=== PATIENT | male | born 1970 | race Two or more races ===

== ENCOUNTER 2016-06-07 20:24 | Emergency (ER) | payer OTHER ==
[~2016-06-07] VITALS: Ht 180.3 cm; Wt 81.6 kg
[2016-06-08 00:39] LABS: Albumin 1.7 g/dL (3.4-5.0); Calcium 7.5 mg/dL (8.5-10.1); Magnesium 2.7 mg/dL (1.6-2.6); Potassium 5.4 mmol/L (3.5-5.1)
[2016-06-08 00:42] LABS: Bilirubin, Total 0.2 mg/dL (0.2-1.0); Total Protein 6.2 g/dL (6.4-8.2)
[2016-06-08 00:44] LABS: Partial Thromboplastin Time 28.8 sec (22.64-33.71); Prothrombin Time 10.3 sec (9.37-12.3)
[2016-06-08 00:58] LABS: Basophils # (auto) 0 uL; Basophils % (auto) 0.2 % (0.0-2.0); Eosinophils # (auto) 0 uL; Eosinophils % (auto) 0.2 % (0.0-7.0); Hematocrit 34.5 % (41.0-53.0); Hemoglobin 11.3 g/dL (13.5-17.5); Lymphocytes # (auto) 0.5 uL; Lymphocytes % (auto) 4.1 % (10.0-50.0); Mean Corpuscular Hemoglobin 28.1 pg (28.0-32.0); Mean Corpuscular Hgb Conc. 32.7 g/dL (32.0-36.0); Mean Platelet Volume 9.8 fL (7.4-10.4); Monocytes # (auto) 0.5 uL; Monocytes % (auto) 4.3 % (0.0-12.0); Neutrophils # (auto) 10.3 uL; Neutrophils % (auto) 91.2 % (37.0-80.0); Platelet Count (auto) 278 10^3/uL (140-450); Red Cell Distribution Width 14.5 % (11.6-16.0); White Blood Cell 11.3 10^3/uL (4.4-10.8)
[2016-06-08 01:25] LABS: Temperature: 20.1 C (20.0-25.0)
[2016-06-08] MEDS ORDERED: cloNIDine HCL 0.1 MG TAB PO ONE (04:30)
[2016-06-08] MEDS ORDERED: FUROSEMIDE 20 MG/2 ML VIAL IV ONE (05:00)
[2016-06-08] MEDS ORDERED: SODIUM POLYSTYRENE SULF 15GM/60ML SUSP PO ONE (05:15)
[2016-06-08] MEDS ORDERED: LABETALOL HCL 5 MG/ML 4ML SYRINGE IV ONE (07:30)
[2016-06-08 08:50] VITALS: BP 173/95
== END 2016-06-08 09:02 | disposition short-term general hospital (02) ==
LOC: ER 20:25
DX: R07.9 Chest pain, unspecified (principal); E11.9 Type 2 diabetes mellitus without complications; N17.9 Acute kidney failure, unspecified; I11.0 Hypertensive heart disease with heart failure; I50.9 Heart failure, unspecified; E87.5 Hyperkalemia; R10.13 Epigastric pain
CPT/HCPCS: 36415; 71020; 80053; 82962; 83735; 83880; 84443; 84484; 85025; 85049; 85379; 85610; 85730; 93005; 94761; 96374; 96375; 99285; J1940; J3490

== ENCOUNTER 2018-01-04 23:53 | Inpatient (IN) | payer MEDICARE, MEDICAID ==
[~2018-01-04] VITALS: Ht 175.3 cm; Wt 93.3 kg
[2018-01-05] MEDS ORDERED: hydrALAZINE HCL 20 MG/ML VL IV ONE (00:15)
[2018-01-05] MEDS ORDERED: ONDANSETRON HCL 4 MG/2 ML VIAL IV ONE (00:15)
[2018-01-05] MEDS ORDERED: MORPHINE SULFATE 4 MG/ML SYR/VIAL IV ONE ×2 (00:15→06:00)
[2018-01-05 00:49] LABS: Basophils # (auto) 0.1 uL; Basophils % (auto) 0.7 % (0.0-2.0); Eosinophils # (auto) 0.7 uL; Monocytes # (auto) 1.1 uL; Neutrophils # (auto) 11.2 uL
[2018-01-05] MEDS ORDERED: NITROGLYCERIN 0.4 MG SL TAB SL ONE ×2 (00:51→02:30)
[2018-01-05 00:52] LABS: Eosinophils % (auto) 4.5 % (0.0-7.0); Hematocrit 23.8 % (41.0-53.0); Hemoglobin 7.9 g/dL (13.5-17.5); Lymphocytes # (auto) 1.8 uL; Lymphocytes % (auto) 12.1 % (10.0-50.0); Mean Corpuscular Hgb Conc. 33.2 g/dL (32.0-36.0); Mean Corpuscular Volume 93.4 fL (80.0-100.0); Monocytes % (auto) 7.2 % (0.0-12.0); Neutrophils % (auto) 75.5 % (37.0-80.0); Platelet Count (auto) 269 10^3/uL (140-450); Red Blood Cells 2.55 10^6/uL (4.5-5.90); Red Cell Distribution Width 14.7 % (11.8-14.3); White Blood Cell 14.8 10^3/uL (4.4-10.8)
[2018-01-05 01:07] LABS: Albumin 2.9 g/dL (3.4-5.0); Calcium 7.6 mg/dL (8.5-10.1); Potassium 4.5 mmol/L (3.5-5.1)
[2018-01-05 01:15] LABS: Bilirubin, Total 0.3 mg/dL (0.2-1.0); Total Protein 7.3 g/dL (6.4-8.2)
[2018-01-05] MEDS ORDERED: ONDANSETRON ODT 4 MG TAB PO ONE ×2 (01:15→18:15)
[2018-01-05 01:41] LABS: INR 0.95 (0.9-1.15); Partial Thromboplastin Time 27.5 sec (23.78-33.04); Prothrombin Time 10.2 sec (9.27-12.13)
[2018-01-05] MEDS ORDERED: MORPHINE SULFATE 4 MG/ML SYR/VIAL ONE (03:49)
[2018-01-05] MEDS ORDERED: ACETAMINOPHEN 500 MG TAB PO PRN (06:00)
[2018-01-05] MEDS ORDERED: HYDROcodone-ACET 5/325MG TAB PO PRN (06:00)
[2018-01-05] MEDS: hydrALAZINE HCL 25 MG TAB PO SCH ×3 (06:25→22:06)
[2018-01-05] MEDS: CARVEDILOL 3.125 MG TAB PO SCH ×2 (08:25→18:24)
[2018-01-05] MEDS ORDERED: LABETALOL HCL 5 MG/ML ML 20ML VIAL IV PRN (08:30)
[2018-01-05] MEDS ORDERED: MORPHINE SULF INJ 2 MG/ML SYRINGE 1ML IV PRN (08:45)
[2018-01-05] MEDS ORDERED: ONDANSETRON HCL 4 MG/2 ML VIAL IV PRN (08:45)
[2018-01-05] MEDS ORDERED: NITROGLYCERIN 0.4 MG SL TAB SL PRN (08:45)
[2018-01-05] MEDS: LOSARTAN POTASSIUM 50 MG TAB PO SCH (10:08)
[2018-01-05] MEDS: amLODIPine BESYLATE 5 MG TAB PO SCH (10:08)
[2018-01-05] MEDS ORDERED: KETOROLAC TROMETH 30 MG/ML 1ML VIAL IV ONE (10:30)
[2018-01-05] MEDS ORDERED: cefTRIAXone 1GM/10ml IVPUSH 10 ML IV ONE (13:15)
[2018-01-05] MEDS ORDERED: DEXTROSE (50%) 50ML SYRG IV PRN (13:15)
[2018-01-05] MEDS ORDERED: EPOETIN ALFA 10,000 UNIT/1 ML VIAL SC ONE (15:45)
[2018-01-05 16:00] VITALS: BP 126/76
[2018-01-05 16:15] VITALS: BP 126/76
[2018-01-05] MEDS: InsuLIN REG 1unit/0.01ml Soln (100units/ml) SC SCH ×2 (18:00→23:49)
[2018-01-05] MEDS: ACCU-CHEK COMFORT CURVE STRIP VI SCH ×2 (18:24→23:49)
[2018-01-05 22:00] VITALS: BP 131/73
[2018-01-05] MEDS: COLCHICINE 0.6 MG TAB PO SCH (22:04)
[2018-01-06 05:00] VITALS: BP 131/79
[2018-01-06] MEDS: hydrALAZINE HCL 25 MG TAB PO SCH ×3 (05:56→22:41)
[2018-01-06] MEDS: InsuLIN REG 1unit/0.01ml Soln (100units/ml) SC SCH ×4 (05:56→23:54)
[2018-01-06] MEDS: ACCU-CHEK COMFORT CURVE STRIP VI SCH ×4 (05:57→23:54)
[2018-01-06 06:44] LABS: Eosinophils # (auto) 0.1 uL; Hemoglobin 7.7 g/dL (13.5-17.5); Lymphocytes # (auto) 0.8 uL; Neutrophils # (auto) 11.6 uL
[2018-01-06 06:47] LABS: Basophils # (auto) 0 uL; Basophils % (auto) 0.3 % (0.0-2.0); Eosinophils % (auto) 0.6 % (0.0-7.0); Lymphocytes % (auto) 6.1 % (10.0-50.0); Mean Corpuscular Hemoglobin 31.3 pg (28.0-32.0); Mean Corpuscular Hgb Conc. 33.6 g/dL (32.0-36.0); Mean Corpuscular Volume 93.3 fL (80.0-100.0); Monocytes % (auto) 7.1 % (0.0-12.0); Neutrophils % (auto) 85.9 % (37.0-80.0); Platelet Count (auto) 212 10^3/uL (140-450); Red Blood Cells 2.46 10^6/uL (4.5-5.90); Red Cell Distribution Width 14.9 % (11.8-14.3); White Blood Cell 13.5 10^3/uL (4.4-10.8)
[2018-01-06 07:19] LABS: Albumin 2.6 g/dL (3.4-5.0); Bilirubin, Total 0.4 mg/dL (0.2-1.0); Calcium 7.4 mg/dL (8.5-10.1); Total Protein 6.8 g/dL (6.4-8.2)
[2018-01-06 07:23] LABS: Potassium 6.5 mmol/L (3.5-5.1)
[2018-01-06 08:38] VITALS: BP 135/76
[2018-01-06] MEDS: cefTRIAXone 1GM/10ml IVPUSH 10 ML IV SCH (08:54)
[2018-01-06] MEDS: amLODIPine BESYLATE 5 MG TAB PO SCH (08:56)
[2018-01-06] MEDS: CARVEDILOL 3.125 MG TAB PO SCH ×2 (08:57→18:00)
[2018-01-06] MEDS: LOSARTAN POTASSIUM 50 MG TAB PO SCH (08:57)
[2018-01-06] MEDS ORDERED: SODIUM POLYSTYRENE SULF 15GM/60ML SUSP PO ONE (10:45)
[2018-01-06] MEDS ORDERED: InsuLIN REG 1unit/0.01ml Soln (100units/ml) IV ONE (10:45)
[2018-01-06] MEDS ORDERED: CALCIUM GLUC 4.65meq/50ml D5AE 50 ML IV ONE (10:45)
[2018-01-06] MEDS ORDERED: DEXTROSE (50%) 50ML SYRG IV ONE (10:45)
[2018-01-06 12:00] VITALS: BP 127/67
[2018-01-06 16:00] VITALS: BP 112/58
[2018-01-06] MEDS ORDERED: VANCOMYCIN 1GM/250ML 250 ML IV ONE (17:45)
[2018-01-06 20:26] LABS: BUN/Creatinine Ratio 5.3; Calcium 7.4 mg/dL (8.5-10.1)
[2018-01-06 22:00] VITALS: BP 113/68
[2018-01-07 05:00] VITALS: BP 133/74
[2018-01-07] MEDS: InsuLIN REG 1unit/0.01ml Soln (100units/ml) SC SCH ×3 (06:00→18:00)
[2018-01-07] MEDS: ACCU-CHEK COMFORT CURVE STRIP VI SCH ×3 (06:00→18:14)
[2018-01-07] MEDS: hydrALAZINE HCL 25 MG TAB PO SCH ×3 (06:01→21:58)
[2018-01-07 07:33] LABS: Hemoglobin 7.2 g/dL (13.5-17.5); Lymphocytes # (auto) 1.7 uL; Lymphocytes % (auto) 15.9 % (10.0-50.0); Mean Corpuscular Hemoglobin 31.1 pg (28.0-32.0); Monocytes # (auto) 1.2 uL; Monocytes % (auto) 10.7 % (0.0-12.0)
[2018-01-07 07:34] LABS: Calcium 7.2 mg/dL (8.5-10.1); Potassium 4.7 mmol/L (3.5-5.1)
[2018-01-07 07:36] LABS: Basophils # (auto) 0 uL; Basophils % (auto) 0.4 % (0.0-2.0); Eosinophils # (auto) 0.5 uL; Eosinophils % (auto) 4.3 % (0.0-7.0); Hematocrit 21.5 % (41.0-53.0); Mean Corpuscular Hgb Conc. 33.6 g/dL (32.0-36.0); Mean Corpuscular Volume 92.4 fL (80.0-100.0); Neutrophils # (auto) 7.5 uL; Neutrophils % (auto) 68.7 % (37.0-80.0); Platelet Count (auto) 223 10^3/uL (140-450); Red Blood Cells 2.33 10^6/uL (4.5-5.90); Red Cell Distribution Width 14.7 % (11.8-14.3); White Blood Cell 10.9 10^3/uL (4.4-10.8)
[2018-01-07 07:46] LABS: Albumin 2.2 g/dL (3.4-5.0); BUN/Creatinine Ratio 5.2; Bilirubin, Total 0.3 mg/dL (0.2-1.0); Total Protein 6.3 g/dL (6.4-8.2)
[2018-01-07] MEDS ORDERED: ADENOSINE 80 MG in GIVE UN-DILUTED 0 ML IV ONE (08:30)
[2018-01-07 08:48] VITALS: BP 138/71
[2018-01-07 09:00] VITALS: BP 139/71
[2018-01-07] MEDS: CARVEDILOL 3.125 MG TAB PO SCH ×2 (10:38→18:13)
[2018-01-07] MEDS: cefTRIAXone 1GM/10ml IVPUSH 10 ML IV SCH (10:38)
[2018-01-07] MEDS: LOSARTAN POTASSIUM 50 MG TAB PO SCH (10:39)
[2018-01-07] MEDS: amLODIPine BESYLATE 5 MG TAB PO SCH (10:39)
[2018-01-07 16:51] VITALS: BP 145/79
[2018-01-07] MEDS: PERITONEAL DIALYSIS 2.5% SOLN 2,000 ML IP SCH (18:13)
[2018-01-07 22:00] VITALS: BP 143/78
[2018-01-08] MEDS: ACCU-CHEK COMFORT CURVE STRIP VI SCH ×4 (00:17→18:42)
[2018-01-08] MEDS: InsuLIN REG 1unit/0.01ml Soln (100units/ml) SC SCH ×4 (00:17→18:00)
[2018-01-08 05:16] VITALS: BP 147/77
[2018-01-08] MEDS: hydrALAZINE HCL 25 MG TAB PO SCH ×3 (06:16→22:43)
[2018-01-08] MEDS: PERITONEAL DIALYSIS 2.5% SOLN 2,000 ML IP SCH ×5 (06:17→22:00)
[2018-01-08 06:46] LABS: Basophils # (auto) 0.1 uL; Eosinophils # (auto) 0.6 uL; Hemoglobin 7.5 g/dL (13.5-17.5); Neutrophils # (auto) 5.3 uL
[2018-01-08 06:48] LABS: Basophils % (auto) 0.8 % (0.0-2.0); Eosinophils % (auto) 6.6 % (0.0-7.0); Hematocrit 22.2 % (41.0-53.0); Lymphocytes # (auto) 1.7 uL; Lymphocytes % (auto) 20.2 % (10.0-50.0); Mean Corpuscular Hemoglobin 30.9 pg (28.0-32.0); Mean Corpuscular Hgb Conc. 33.6 g/dL (32.0-36.0); Mean Corpuscular Volume 91.9 fL (80.0-100.0); Monocytes % (auto) 11.2 % (0.0-12.0); Neutrophils % (auto) 61.2 % (37.0-80.0); Platelet Count (auto) 245 10^3/uL (140-450); Red Blood Cells 2.41 10^6/uL (4.5-5.90); Red Cell Distribution Width 14.3 % (11.8-14.3); White Blood Cell 8.6 10^3/uL (4.4-10.8)
[2018-01-08 07:06] LABS: Albumin 2.1 g/dL (3.4-5.0); Calcium 7.2 mg/dL (8.5-10.1); Potassium 4.4 mmol/L (3.5-5.1)
[2018-01-08 07:25] LABS: BUN/Creatinine Ratio 5.2; Bilirubin, Total 0.3 mg/dL (0.2-1.0); Total Protein 6.3 g/dL (6.4-8.2)
[2018-01-08 08:30] VITALS: BP 149/80
[2018-01-08] MEDS: CARVEDILOL 3.125 MG TAB PO SCH ×2 (09:12→18:42)
[2018-01-08] MEDS: Pro-Stat SF 30ml Vanilla PO SCH ×2 (09:13→18:42)
[2018-01-08] MEDS: cefTRIAXone 1GM/10ml IVPUSH 10 ML IV SCH (09:13)
[2018-01-08] MEDS: LOSARTAN POTASSIUM 50 MG TAB PO SCH (09:13)
[2018-01-08] MEDS: amLODIPine BESYLATE 5 MG TAB PO SCH (09:14)
[2018-01-08] MEDS ORDERED: EPOETIN ALFA 10,000 UNIT/1 ML VIAL SC ONE (12:45)
[2018-01-08 12:46] VITALS: BP 142/71
[2018-01-08 16:38] VITALS: BP 142/71
[2018-01-08 22:00] VITALS: BP 140/73
[2018-01-08] MEDS: COLCHICINE 0.6 MG TAB PO SCH (22:42)
[2018-01-09 05:27] VITALS: BP 155/74
[2018-01-09] MEDS: InsuLIN REG 1unit/0.01ml Soln (100units/ml) SC SCH ×4 (06:00→18:41)
[2018-01-09] MEDS: PERITONEAL DIALYSIS 2.5% SOLN 2,000 ML IP SCH ×3 (06:19→18:41)
[2018-01-09] MEDS: ACCU-CHEK COMFORT CURVE STRIP VI SCH ×4 (06:19→17:16)
[2018-01-09] MEDS: hydrALAZINE HCL 25 MG TAB PO SCH ×2 (06:19→14:13)
[2018-01-09 06:20] LABS: Basophils # (auto) 0.1 uL; Eosinophils # (auto) 0.7 uL; White Blood Cell 7.7 10^3/uL (4.4-10.8)
[2018-01-09 06:24] LABS: Basophils % (auto) 0.8 % (0.0-2.0); Eosinophils % (auto) 8.7 % (0.0-7.0); Hematocrit 22.9 % (41.0-53.0); Hemoglobin 7.8 g/dL (13.5-17.5); Lymphocytes # (auto) 1.6 uL; Lymphocytes % (auto) 21.3 % (10.0-50.0); Mean Corpuscular Hemoglobin 31.6 pg (28.0-32.0); Mean Corpuscular Hgb Conc. 34.3 g/dL (32.0-36.0); Mean Corpuscular Volume 92.3 fL (80.0-100.0); Monocytes # (auto) 0.8 uL; Monocytes % (auto) 10.1 % (0.0-12.0); Neutrophils # (auto) 4.6 uL; Neutrophils % (auto) 59.1 % (37.0-80.0); Platelet Count (auto) 269 10^3/uL (140-450); Red Blood Cells 2.48 10^6/uL (4.5-5.90); Red Cell Distribution Width 14.3 % (11.8-14.3)
[2018-01-09 06:43] LABS: Potassium 4.2 mmol/L (3.5-5.1)
[2018-01-09 06:57] LABS: Albumin 2.1 g/dL (3.4-5.0); BUN/Creatinine Ratio 4.8; Bilirubin, Total 0.3 mg/dL (0.2-1.0); Calcium 6.8 mg/dL (8.5-10.1); Total Protein 6.4 g/dL (6.4-8.2)
[2018-01-09 08:00] VITALS: BP 148/89
[2018-01-09] MEDS: Pro-Stat SF 30ml Vanilla PO SCH ×2 (08:00→17:16)
[2018-01-09] MEDS: CARVEDILOL 3.125 MG TAB PO SCH ×2 (08:27→17:44)
[2018-01-09 08:30] VITALS: BP 148/89
[2018-01-09] MEDS: amLODIPine BESYLATE 5 MG TAB PO SCH (10:25)
[2018-01-09] MEDS: cefTRIAXone 1GM/10ml IVPUSH 10 ML IV SCH (10:25)
[2018-01-09] MEDS: LOSARTAN POTASSIUM 50 MG TAB PO SCH (10:26)
[2018-01-09] MEDS ORDERED: LACTULOSE 20Gm/30ML SOLN PO ONE (10:45)
[2018-01-09 12:30] VITALS: BP 138/80
[2018-01-09] MEDS ORDERED: PROMETHAZINE HCL 25 MG/ML 1ML IM ONE (15:00)
[2018-01-09] MEDS ORDERED: PROMETHAZINE HCL 25 MG/ML 1ML IV ONE (17:00)
[2018-01-09 17:23] VITALS: BP 142/78
== END 2018-01-09 19:45 | disposition home or self-care (01) | DRG 280 ==
LOC: EDBD 23:53 → ER 23:57 → TELE 23:58 → TELE-EAST 01-05 15:53
PROVIDERS: ADMIT Nurse Practitioner Family; ATTEND Family Medicine
PROC: 3E1M39Z Irrigation of Peritoneal Cavity using Dialysate, Percutaneous Approach (ICD-10-PCS; principal; 2018-01-06)
DX: I21.4 Non-ST elevation (NSTEMI) myocardial infarction (principal); N18.6 End stage renal disease; I13.2 Hypertensive heart and chronic kidney disease with heart failure and with stage 5 chronic kidney disease, or end stage renal disease; I42.9 Cardiomyopathy, unspecified; I32 Pericarditis in diseases classified elsewhere; I16.0 Hypertensive urgency; E87.5 Hyperkalemia; E11.22 Type 2 diabetes mellitus with diabetic chronic kidney disease; D63.1 Anemia in chronic kidney disease; I25.119 Atherosclerotic heart disease of native coronary artery with unspecified angina pectoris; R01.1 Cardiac murmur, unspecified; I50.9 Heart failure, unspecified; Z79.4 Long term (current) use of insulin; Z82.49 Family history of ischemic heart disease and other diseases of the circulatory system; Z99.2 Dependence on renal dialysis; Z83.3 Family history of diabetes mellitus; Z79.84 Long term (current) use of oral hypoglycemic drugs
CPT/HCPCS: 36415; 71045; 78452; 80048; 80053; 82962; 83036; 83880; 84484; 85025; 85610; 85730; 87040; 87205; 93005; 93017; 93306; 94761; 96374; 96375; 96376; 97163; J0153; J0610; J0696; J0885; J1815; J1885; J2405; Q0162

== ENCOUNTER 2023-06-05 11:13 | Inpatient (IN) | payer OTHER, MEDICAID ==
[~2023-06-05] VITALS: Ht 180.3 cm; Wt 85.0 kg
[~2023-06-05 11:13] MED LIST: AMLO1TAB22 PO; BUSP15TA90 PO; CALC0.5C PO; CARV12.544 PO; CINA30TA2 PO; CYAN1TAB14 PO; DOCU250C12 PO; HYDR-4297 PO; LOSA50TA46 PO; ONDA-188 PO; PANT40TA2 PO; SERT-206 PO
[2023-06-05 11:53] LABS: Basophils # (auto) 0 10 ^3/uL (0-0.2); Basophils % (auto) 0.8 % (0.0-2.0); Eosinophils # (auto) 0 10 ^3/uL (0-0.8); Eosinophils % (auto) 0.4 % (0.0-7.0); Hematocrit 34.2 % (41.0-53.0); Hemoglobin 11.4 g/dL (13.5-17.5); Lymphocytes # (auto) 0.8 10 ^3/uL (0.4-5.4); Lymphocytes % (auto) 12.2 % (10.0-50.0); Mean Corpuscular Hemoglobin 32.1 pg (28.0-32.0); Mean Corpuscular Hgb Conc. 33.3 g/dL (32.0-36.0); Mean Corpuscular Volume 96.3 fL (80.0-100.0); Monocytes # (auto) 0.7 10 ^3/uL (0-1.3); Monocytes % (auto) 11.4 % (0.0-12.0); Neutrophils # (auto) 4.6 10 ^3/uL (1.6-8.6); Neutrophils % (auto) 75.2 % (37.0-80.0); Nucleated Red Blood Cells % 0.6 %; Red Blood Cells 3.55 10^6/uL (4.5-5.90); Red Cell Distribution Width 17.8 % (11.8-14.3); White Blood Cell 6.2 10^3/uL (4.4-10.8)
[2023-06-05 12:18] LABS: Alanine Aminotransferase 60 U/L (7-40); Albumin 3.7 g/dL (3.2-4.8); Alkaline Phosphatase 385 U/L (46-116); Anion Gap 10 (5-15); Aspartate Aminotransferase 96 U/L (13-40); BUN/Creatinine Ratio 7.1 (10.0-20.0); Blood Urea Nitrogen 38 mg/dL (9-23); Calcium 7.8 mg/dL (8.5-10.1); Carbon Dioxide 31 mmol/L (20-30); Chloride 97 mmol/L (98-107); Glucose 95 mg/dL (74-106); Potassium 5.3 mmol/L (3.5-5.1); Sodium 138 mmol/L (136-145)
[2023-06-05 12:22] LABS: Lactic Acid w/Reflex 2.1 mmol/L (0.4-2.0)
[2023-06-05] MEDS ORDERED: DEXTROSE (50%) 50ML SYRG IV PRN (14:30)
[2023-06-05] MEDS ORDERED: MORPHINE SULFATE INJ 2 MG/ml SYRG IV PRN (14:30)
[2023-06-05] MEDS ORDERED: DOCUSATE SOD 100 MG CAP PO PRN (14:30)
[2023-06-05] MEDS ORDERED: SODIUM ZIRCONIUM CYCL 10 GM PAK PO ONE (14:30)
[2023-06-05 15:29] LABS: Alanine Aminotransferase 81 U/L (7-40); Albumin 3.9 g/dL (3.2-4.8); Alkaline Phosphatase 403 U/L (46-116); Aspartate Aminotransferase 124 U/L (13-40); Bilirubin, Direct 0.7 mg/dL (<0.3); Bilirubin, Total 0.9 mg/dL (0.2-1.0); Blood Alcohol < 3.0 mg/dL (<10); Total Protein 7.5 g/dL (5.7-8.2)
[2023-06-05 15:48] VITALS: PULSE 67; RESP 15; O2SAT 98
[2023-06-05] MEDS ORDERED: HEPARIN DRIP/D5W 100UNITS/ML 250 ML IV SCH (16:30)
[2023-06-05] MEDS ORDERED: ASPirin 325 MG TAB PO ONE (16:30)
[2023-06-05] MEDS ORDERED: HEPARIN SODIUM (PORCINE) 5000 UNITS/ML 1ML VIAL IV ONE (16:30)
[2023-06-05] MEDS ORDERED: hydrALAZINE HCL 20 MG/ML VL IV PRN (16:30)
[2023-06-05] MEDS ORDERED: CLOPIDOGREL 300 MG TAB PO ONE (16:30)
[2023-06-05] MEDS: InsuLIN REG 1unit/0.01ml Soln (100units/ml) SC SCH ×2 (17:45→21:39)
[2023-06-05] MEDS: ACCU-CHEK COMFORT CURVE STRIP VI SCH ×2 (17:45→21:38)
[2023-06-05 18:50] LABS: Basophils # (auto) 0 10 ^3/uL (0-0.2); Basophils % (auto) 0.7 % (0.0-2.0); Eosinophils # (auto) 0 10 ^3/uL (0-0.8); Eosinophils % (auto) 0.3 % (0.0-7.0); Hematocrit 34.8 % (41.0-53.0); Hemoglobin 11.7 g/dL (13.5-17.5); Lymphocytes # (auto) 1.2 10 ^3/uL (0.4-5.4); Lymphocytes % (auto) 17.1 % (10.0-50.0); Mean Corpuscular Hemoglobin 32.4 pg (28.0-32.0); Mean Corpuscular Hgb Conc. 33.5 g/dL (32.0-36.0); Mean Corpuscular Volume 96.8 fL (80.0-100.0); Monocytes # (auto) 0.7 10 ^3/uL (0-1.3); Neutrophils # (auto) 4.9 10 ^3/uL (1.6-8.6); Neutrophils % (auto) 71.9 % (37.0-80.0); Nucleated Red Blood Cells % 0.2 %; White Blood Cell 6.8 10^3/uL (4.4-10.8)
[2023-06-05 19:08] LABS: INR 1.26 (0.9-1.15); Partial Thromboplastin Time 30.7 SEC (24.5-34.5)
[2023-06-05] MEDS ORDERED: LIDOCAINE 2%HCL (LOCAL ANESTH.) INJ 20ML MDV ONE (19:09)
[2023-06-05] MEDS ORDERED: IODIXANOL 320MG/ML 100ML BTL IV ONE (19:09)
[2023-06-05] MEDS ORDERED: ANGIOMAX 250 MG VIAL IV ONE (19:18)
[2023-06-05] MEDS ORDERED: VERAPAMIL 2.5MG/ML INJ 2ML VIAL IV ONE (19:18)
[2023-06-05] MEDS ORDERED: HEPARIN SODIUM (PORCINE) 5000 UNITS/ML 1ML VIAL ONE (19:18)
[2023-06-05] MEDS ORDERED: fentaNYL CITRATE 100 MCG/2 ML VL ONE (19:19)
[2023-06-05] MEDS ORDERED: MIDAZOLAM HCL 2MG/2ML 2ml VIAL (1mg/ml) ONE (19:19)
[2023-06-05] MEDS ORDERED: SODIUM CHL 0.9% 0 ML ONE (19:19)
[2023-06-05 19:31] LABS: Triglycerides 84 mg/dL (< 150)
[2023-06-05 19:32] LABS: LDL Cholesterol 76 mg/dL (< 100)
[2023-06-05 19:33] LABS: Cholesterol 148 mg/dL (< 200); HDL Cholesterol 43 mg/dL (40-59)
[2023-06-05] MEDS: hydrALAZINE HCL 25 MG TAB PO SCH (21:35)
[2023-06-05] MEDS: busPIRone HCL 10 MG TAB PO SCH (21:36)
[2023-06-05] MEDS: CARVEDILOL 12.5 MG TAB PO SCH (21:37)
[2023-06-05] MEDS: amLODIPine BESYLATE 5 MG TAB PO SCH (21:38)
[2023-06-05] MEDS ORDERED: BUSPIRONE HCL 15 MG PO SCH (22:00)
[2023-06-05] MEDS ORDERED: PIPERACILLIN-TAZOB 2.25GM 50 ML IV ONE (22:00)
[2023-06-05] MEDS ORDERED: PATIENTS OWN MEDICATION (Hydralazine Hcl 50 MG) PO SCH (22:00)
[2023-06-05 22:25] VITALS: BP 148/79; PULSE 61; RESP 16; TEMP 98; O2SAT 90; O2SAT 93
[2023-06-05] MEDS: ONDANSETRON HCL 4 MG/2 ML VIAL IV PRN (23:45)
[2023-06-06] VITALS (8 sets, daily range): BP systolic 110–146; BP diastolic 51–78; PULSE 57–93; RESP 16–18; TEMP 97.4–98.3; O2SAT 90–97
[2023-06-06] MEDS: hydrALAZINE HCL 25 MG TAB PO SCH ×3 (05:25→21:14)
[2023-06-06 05:29] LABS: Basophils # (auto) 0 10 ^3/uL (0-0.2); Basophils % (auto) 0.7 % (0.0-2.0); Eosinophils # (auto) 0 10 ^3/uL (0-0.8); Eosinophils % (auto) 0.6 % (0.0-7.0); Hematocrit 33.8 % (41.0-53.0); Hemoglobin 11.1 g/dL (13.5-17.5); Lymphocytes # (auto) 0.9 10 ^3/uL (0.4-5.4); Lymphocytes % (auto) 15.6 % (10.0-50.0); Mean Corpuscular Hemoglobin 31.9 pg (28.0-32.0); Mean Corpuscular Volume 96.7 fL (80.0-100.0); Monocytes # (auto) 0.8 10 ^3/uL (0-1.3); Monocytes % (auto) 13.5 % (0.0-12.0); Neutrophils # (auto) 3.9 10 ^3/uL (1.6-8.6); Neutrophils % (auto) 69.6 % (37.0-80.0); Nucleated Red Blood Cells % 0.2 %; Red Blood Cells 3.49 10^6/uL (4.5-5.90); White Blood Cell 5.6 10^3/uL (4.4-10.8)
[2023-06-06 05:48] LABS: Alanine Aminotransferase 94 U/L (7-40); Albumin 3.5 g/dL (3.2-4.8); Alkaline Phosphatase 346 U/L (46-116); Anion Gap 9 (5-15); Aspartate Aminotransferase 126 U/L (13-40); BUN/Creatinine Ratio 6.7 (10.0-20.0); Blood Urea Nitrogen 43 mg/dL (9-23); Calcium 7.7 mg/dL (8.5-10.1); Carbon Dioxide 31 mmol/L (20-30); Chloride 98 mmol/L (98-107); Glucose 135 mg/dL (74-106); Potassium 4.8 mmol/L (3.5-5.1); Sodium 138 mmol/L (136-145)
[2023-06-06 05:49] LABS: Bilirubin, Total 0.7 mg/dL (0.2-1.0); Total Protein 6.9 g/dL (5.7-8.2)
[2023-06-06] MEDS: InsuLIN REG 1unit/0.01ml Soln (100units/ml) SC SCH ×4 (06:29→21:24)
[2023-06-06] MEDS: ACCU-CHEK COMFORT CURVE STRIP VI SCH ×4 (06:29→21:19)
[2023-06-06] MEDS: busPIRone HCL 10 MG TAB PO SCH ×2 (09:55→21:12)
[2023-06-06] MEDS: CARVEDILOL 12.5 MG TAB PO SCH ×2 (09:55→21:17)
[2023-06-06] MEDS: amLODIPine BESYLATE 5 MG TAB PO SCH ×2 (09:56→21:12)
[2023-06-06] MEDS: SERTRALINE HCL 50 MG TAB PO SCH (09:56)
[2023-06-06] MEDS: LOSARTAN POTASSIUM 50 MG TAB PO SCH (09:56)
[2023-06-06] MEDS: PANTOPRAZOLE 40 MG TAB PO SCH (09:57)
[2023-06-06] MEDS: ASPirin 81 mg TAB PO SCH (09:57)
[2023-06-06] MEDS ORDERED: ENOXAPARIN SOD 30 MG/0.3 ML SYRINGE SC SCH (10:00)
[2023-06-06] MEDS: CINACALCET HYDROCHLORIDE 30 MG TAB PO SCH (10:00)
[2023-06-06] MEDS ORDERED: SODIUM CHL 0.9% 1000 ML BAG XX ONE (15:30)
[2023-06-06] MEDS ORDERED: ALBUTEROL SULF 2.5 MG/0.5ML(0.5%) NEB SOLN NEB PRN (15:45)
[2023-06-06] MEDS ORDERED: ENOXAPARIN SOD 30 MG/0.3 ML SYRINGE SC ONE (15:45)
[2023-06-06] MEDS ORDERED: LACTULOSE 20Gm/30ML SOLN PO PRN (15:45)
[2023-06-06] MEDS ORDERED: EPOETIN ALFA-EPBX 10,000 UNIT/1ML VIAL SC ONE (21:00)
[2023-06-07] VITALS (8 sets, daily range): BP systolic 110–167; BP diastolic 52–88; PULSE 60–81; RESP 14–17; TEMP 97.2–97.8; O2SAT 91–98
[2023-06-07 05:42] LABS: Basophils # (auto) 0 10 ^3/uL (0-0.2); Basophils % (auto) 0.6 % (0.0-2.0); Eosinophils # (auto) 0.1 10 ^3/uL (0-0.8); Hematocrit 32.7 % (41.0-53.0); Hemoglobin 10.8 g/dL (13.5-17.5); Lymphocytes # (auto) 0.8 10 ^3/uL (0.4-5.4); Lymphocytes % (auto) 11.7 % (10.0-50.0); Mean Corpuscular Hgb Conc. 33.1 g/dL (32.0-36.0); Mean Corpuscular Volume 96.8 fL (80.0-100.0); Monocytes # (auto) 0.9 10 ^3/uL (0-1.3); Monocytes % (auto) 13.1 % (0.0-12.0); Neutrophils # (auto) 5.1 10 ^3/uL (1.6-8.6); Neutrophils % (auto) 72.6 % (37.0-80.0); Nucleated Red Blood Cells % 0.1 %; Red Blood Cells 3.38 10^6/uL (4.5-5.90); Red Cell Distribution Width 18.4 % (11.8-14.3)
[2023-06-07] MEDS: InsuLIN REG 1unit/0.01ml Soln (100units/ml) SC SCH ×4 (05:49→21:30)
[2023-06-07] MEDS: ACCU-CHEK COMFORT CURVE STRIP VI SCH ×4 (05:49→21:30)
[2023-06-07] MEDS: hydrALAZINE HCL 25 MG TAB PO SCH ×3 (05:51→21:20)
[2023-06-07 05:55] LABS: Alanine Aminotransferase 87 U/L (7-40); Albumin 3.4 g/dL (3.2-4.8); Alkaline Phosphatase 374 U/L (46-116); Anion Gap 10 (5-15); Aspartate Aminotransferase 68 U/L (13-40); Bilirubin, Total 0.6 mg/dL (0.2-1.0); Calcium 7.7 mg/dL (8.7-10.4); Carbon Dioxide 30 mmol/L (20-30); Chloride 100 mmol/L (98-107); Glucose 103 mg/dL (74-106); Potassium 5.1 mmol/L (3.5-5.1); Sodium 140 mmol/L (136-145)
[2023-06-07 06:00] LABS: Blood Urea Nitrogen 57 mg/dL (9-23)
[2023-06-07] MEDS ORDERED: SEVE800T8 PO (07:37)
[2023-06-07] MEDS ORDERED: FERR1TAB17 PO (07:38)
[2023-06-07] MEDS ORDERED: B-COTAB10 OR (07:39)
[2023-06-07] MEDS ORDERED: TRAM50TA2 PO (07:39)
[2023-06-07] MEDS ORDERED: DORZ2SOL18 EACHEYE (07:40)
[2023-06-07] MEDS ORDERED: BRIM0.1S3 OP (07:41)
[2023-06-07] MEDS ORDERED: TIMO0.5S66 OP (07:42)
[2023-06-07] MEDS: cefTRIAXone 1GM/50ML D5W 50 ML IV SCH (09:25)
[2023-06-07] MEDS: ENOXAPARIN SOD 30 MG/0.3 ML SYRINGE SC SCH (09:26)
[2023-06-07] MEDS: busPIRone HCL 10 MG TAB PO SCH ×2 (09:26→21:21)
[2023-06-07] MEDS: CARVEDILOL 12.5 MG TAB PO SCH ×2 (09:32→21:23)
[2023-06-07] MEDS: ASPirin 81 mg TAB PO SCH (09:32)
[2023-06-07] MEDS: amLODIPine BESYLATE 5 MG TAB PO SCH ×2 (09:33→21:23)
[2023-06-07] MEDS: PANTOPRAZOLE 40 MG TAB PO SCH (09:33)
[2023-06-07] MEDS: LOSARTAN POTASSIUM 50 MG TAB PO SCH (09:33)
[2023-06-07] MEDS: SERTRALINE HCL 50 MG TAB PO SCH (09:33)
[2023-06-07] MEDS: CINACALCET HYDROCHLORIDE 30 MG TAB PO SCH (09:34)
[2023-06-07] MEDS ORDERED: CALCITRIOL 0.25 MCG CAP PO SCH (10:00)
[2023-06-07] MEDS ORDERED: CALCITRIOL 0.5 MCG PO SCH (10:00)
[2023-06-07] MEDS: AZITHROMYCIN 500MG/ 250ML 250 ML IV SCH (14:32)
[2023-06-08] VITALS (7 sets, daily range): BP systolic 129–151; BP diastolic 69–77; PULSE 61–64; RESP 14–18; TEMP 97.6–98.4; O2SAT 94–97
[2023-06-08 05:24] LABS: Basophils # (auto) 0.1 10 ^3/uL (0-0.2); Eosinophils # (auto) 0.2 10 ^3/uL (0-0.8); Eosinophils % (auto) 2.7 % (0.0-7.0); Hematocrit 33.6 % (41.0-53.0); Lymphocytes # (auto) 1.2 10 ^3/uL (0.4-5.4); Lymphocytes % (auto) 19.1 % (10.0-50.0); Mean Corpuscular Hemoglobin 31.9 pg (28.0-32.0); Mean Corpuscular Hgb Conc. 32.8 g/dL (32.0-36.0); Mean Corpuscular Volume 97.4 fL (80.0-100.0); Monocytes # (auto) 0.8 10 ^3/uL (0-1.3); Monocytes % (auto) 12.7 % (0.0-12.0); Neutrophils # (auto) 3.9 10 ^3/uL (1.6-8.6); Neutrophils % (auto) 64.5 % (37.0-80.0); Nucleated Red Blood Cells % 0.1 %; Red Blood Cells 3.45 10^6/uL (4.5-5.90); Red Cell Distribution Width 18.2 % (11.8-14.3); White Blood Cell 6.1 10^3/uL (4.4-10.8)
[2023-06-08 05:43] LABS: Alanine Aminotransferase 72 U/L (7-40); Albumin 3.6 g/dL (3.2-4.8); Alkaline Phosphatase 386 U/L (46-116); Anion Gap 9 (5-15); Aspartate Aminotransferase 46 U/L (13-40); BUN/Creatinine Ratio 7.4 (10.0-20.0); Bilirubin, Total 0.6 mg/dL (0.2-1.0); Calcium 7.7 mg/dL (8.7-10.4); Carbon Dioxide 29 mmol/L (20-30); Chloride 102 mmol/L (98-107); Glucose 81 mg/dL (74-106); Potassium 4.8 mmol/L (3.5-5.1); Sodium 140 mmol/L (136-145)
[2023-06-08] MEDS: hydrALAZINE HCL 25 MG TAB PO SCH ×2 (05:48→14:00)
[2023-06-08] MEDS: ACCU-CHEK COMFORT CURVE STRIP VI SCH ×3 (05:51→16:29)
[2023-06-08] MEDS: InsuLIN REG 1unit/0.01ml Soln (100units/ml) SC SCH ×3 (05:52→16:29)
[2023-06-08 06:00] LABS: Blood Urea Nitrogen 42 mg/dL (9-23)
[2023-06-08] MEDS: cefTRIAXone 1GM/50ML D5W 50 ML IV SCH (09:48)
[2023-06-08] MEDS: LOSARTAN POTASSIUM 50 MG TAB PO SCH (09:49)
[2023-06-08] MEDS: PANTOPRAZOLE 40 MG TAB PO SCH (09:49)
[2023-06-08] MEDS: SERTRALINE HCL 50 MG TAB PO SCH (09:49)
[2023-06-08] MEDS: ASPirin 81 mg TAB PO SCH (09:50)
[2023-06-08] MEDS: CARVEDILOL 12.5 MG TAB PO SCH (09:50)
[2023-06-08] MEDS: ENOXAPARIN SOD 30 MG/0.3 ML SYRINGE SC SCH (09:51)
[2023-06-08] MEDS: amLODIPine BESYLATE 5 MG TAB PO SCH (09:51)
[2023-06-08] MEDS: busPIRone HCL 10 MG TAB PO SCH (09:51)
[2023-06-08] MEDS: CINACALCET HYDROCHLORIDE 30 MG TAB PO SCH (10:01)
[2023-06-08] MEDS: AZITHROMYCIN 500MG/ 250ML 250 ML IV SCH (11:35)
[2023-06-08] MEDS ORDERED: LEVO250T58 PO (15:19)
[2023-06-08] MEDS: ONDANSETRON HCL 4 MG/2 ML VIAL IV PRN (16:25)
[2023-06-09 08:55] LABS: Hepatitis B Surface Antibody Positive (Negative)
[2023-06-09 09:07] LABS: Hepatitis B Surface Antigen Negative (Negative)
[2023-06-09 09:28] LABS: Hepatitis C Antibody Negative (Negative)
== END 2023-06-08 19:08 | disposition home or self-care (01) | DRG 280 ==
LOC: ER 11:13 → EDBD 11:13 → TELE 14:35 → TELE-WESTW 20:55
PROVIDERS: ADMIT Nurse Practitioner Family; ATTEND Internal Medicine
PROC: B2111ZZ Fluoroscopy of Multiple Coronary Arteries using Low Osmolar Contrast (ICD-10-PCS; principal; 2023-06-05)
PROC: B2151ZZ Fluoroscopy of Left Heart using Low Osmolar Contrast (ICD-10-PCS; 2023-06-05)
PROC: 4A023N7 Measurement of Cardiac Sampling and Pressure, Left Heart, Percutaneous Approach (ICD-10-PCS; 2023-06-05)
PROC: 5A1D70Z Performance of Urinary Filtration, Intermittent, Less than 6 Hours Per Day (ICD-10-PCS; 2023-06-06)
PROC: 5A1D70Z Performance of Urinary Filtration, Intermittent, Less than 6 Hours Per Day (ICD-10-PCS; 2023-06-07)
DX: I21.4 Non-ST elevation (NSTEMI) myocardial infarction (principal); I50.43 Acute on chronic combined systolic (congestive) and diastolic (congestive) heart failure; J15.9 Unspecified bacterial pneumonia; N18.6 End stage renal disease; I13.2 Hypertensive heart and chronic kidney disease with heart failure and with stage 5 chronic kidney disease, or end stage renal disease; E87.21 Acute metabolic acidosis; I42.9 Cardiomyopathy, unspecified; E11.22 Type 2 diabetes mellitus with diabetic chronic kidney disease; E87.5 Hyperkalemia; G62.9 Polyneuropathy, unspecified; I16.0 Hypertensive urgency; R74.01 Elevation of levels of liver transaminase levels; D63.1 Anemia in chronic kidney disease; E78.5 Hyperlipidemia, unspecified; D69.6 Thrombocytopenia, unspecified; H54.62 Unqualified visual loss, left eye, normal vision right eye; E21.1 Secondary hyperparathyroidism, not elsewhere classified; Z99.2 Dependence on renal dialysis; Z79.899 Other long term (current) drug therapy; Z87.442 Personal history of urinary calculi; I25.2 Old myocardial infarction
CPT/HCPCS: 36415; 71045; 74176; 76705; 80053; 80061; 80076; 80320; 82962; 83036; 83605; 84443; 84484; 85025; 85610; 85730; 86706; 86803; 87070; 87205; 87340; 90935; 93005; 93306; 99152; G0378; J1815; J2250; J2405; J2543; Q9967

== ENCOUNTER 2023-07-28 14:34 | Inpatient (IN) | payer OTHER, MEDICAID ==
[~2023-07-28] VITALS: Ht 167.6 cm; Wt 81.0 kg
[~2023-07-28 14:34] MED LIST changes: +B-COTAB10 PO; +BRIM0.1S3 OP; +DORZ2SOL18 EACHEYE; +FERR1TAB17 PO; +LEVO250T58 PO; +SEVE800T8 PO; +TIMO0.5S66 LEFTEYE; +TRAM50TA2 PO
[2023-07-28] MEDS ORDERED: LABETALOL HCL 5 MG/ML 4ML SYRINGE IV ONE (15:45)
[2023-07-28] MEDS ORDERED: SODIUM CHLORIDE 0.9% 1,000 ML IV ONE (15:45)
[2023-07-28 16:07] LABS: Basophils # (auto) 0.1 10 ^3/uL (0-0.2); Basophils % (auto) 1.3 % (0.0-2.0); Eosinophils # (auto) 0.2 10 ^3/uL (0-0.8); Eosinophils % (auto) 4.3 % (0.0-7.0); Hematocrit 37.1 % (41.0-53.0); Hemoglobin 12.3 g/dL (13.5-17.5); Lymphocytes # (auto) 1.2 10 ^3/uL (0.4-5.4); Lymphocytes % (auto) 22.3 % (10.0-50.0); Mean Corpuscular Hemoglobin 32.5 pg (28.0-32.0); Mean Corpuscular Hgb Conc. 33.2 g/dL (32.0-36.0); Mean Corpuscular Volume 97.8 fL (80.0-100.0); Monocytes # (auto) 0.6 10 ^3/uL (0-1.3); Monocytes % (auto) 11.4 % (0.0-12.0); Neutrophils # (auto) 3.2 10 ^3/uL (1.6-8.6); Neutrophils % (auto) 60.7 % (37.0-80.0); Nucleated Red Blood Cells % 0.1 %; Red Blood Cells 3.79 10^6/uL (4.5-5.90); Red Cell Distribution Width 15.6 % (11.8-14.3); White Blood Cell 5.3 10^3/uL (4.4-10.8)
[2023-07-28 16:25] LABS: Alanine Aminotransferase 12 U/L (7-40); Albumin 3.7 g/dL (3.2-4.8); Alkaline Phosphatase 392 U/L (46-116); Anion Gap 8 (5-15); Aspartate Aminotransferase 42 U/L (13-40); BUN/Creatinine Ratio 7.4 (10.0-20.0); Blood Urea Nitrogen 25 mg/dL (9-23); Calcium 8.5 mg/dL (8.5-10.1); Carbon Dioxide 32 mmol/L (20-30); Chloride 97 mmol/L (98-107); Glucose 74 mg/dL (74-106); Potassium 4.1 mmol/L (3.5-5.1); Sodium 137 mmol/L (136-145); Total Protein 6.9 g/dL (5.7-8.2)
[2023-07-28 16:28] LABS: Bilirubin, Total 1.6 mg/dL (0.2-1.0)
[2023-07-28] MEDS ORDERED: DEXTROSE (50%) 50ML SYRG IV PRN (18:30)
[2023-07-28] MEDS ORDERED: NITROGLYCERIN 0.4 MG SL TAB SL PRN (18:30)
[2023-07-28] MEDS ORDERED: ONDANSETRON HCL 4 MG/2 ML VIAL IV PRN (18:30)
[2023-07-28] MEDS ORDERED: ACETAMINOPHEN 325 MG TAB PO PRN (18:30)
[2023-07-28] MEDS ORDERED: DOCUSATE SOD 100 MG CAP PO PRN (18:30)
[2023-07-28] MEDS ORDERED: MORPHINE SULFATE INJ 2 MG/ml SYRG IV PRN ×2 (18:30)
[2023-07-28] MEDS ORDERED: HYDROcodone-ACET 5/325MG TAB PO PRN (18:30)
[2023-07-28] MEDS: HYDROcodone-ACET 7.5/325MG TAB PO ONE (21:04)
[2023-07-28] MEDS: hydrALAZINE HCL 20 MG/ML VL IV ONE (21:04)
[2023-07-28] MEDS: ACCU-CHEK COMFORT CURVE STRIP VI SCH (22:00)
[2023-07-28] MEDS: DORZOLAMIDE HCL 2% OPTH(EYE) SOL 10ML LEFTEYE SCH (22:00)
[2023-07-28] MEDS: InsuLIN REG 1unit/0.01ml Soln (100units/ml) SC SCH (22:00)
[2023-07-28] MEDS: CARVEDILOL 12.5 MG TAB PO SCH (22:08)
[2023-07-28] MEDS: amLODIPine BESYLATE 5 MG TAB PO SCH (22:08)
[2023-07-28] MEDS: hydrALAZINE HCL 25 MG TAB PO SCH (22:09)
[2023-07-28] MEDS: TIMOLOL MAL 0.5% OPTH(EYE) SOL 5ML LEFTEYE SCH (22:09)
[2023-07-29 07:23] LABS: Basophils # (auto) 0.1 10 ^3/uL (0-0.2); Basophils % (auto) 1.4 % (0.0-2.0); Eosinophils # (auto) 0.2 10 ^3/uL (0-0.8); Hematocrit 37.3 % (41.0-53.0); Hemoglobin 12.3 g/dL (13.5-17.5); Lymphocytes # (auto) 0.8 10 ^3/uL (0.4-5.4); Lymphocytes % (auto) 15.1 % (10.0-50.0); Mean Corpuscular Hemoglobin 32.5 pg (28.0-32.0); Mean Corpuscular Volume 98.5 fL (80.0-100.0); Monocytes # (auto) 0.5 10 ^3/uL (0-1.3); Monocytes % (auto) 9.6 % (0.0-12.0); Neutrophils # (auto) 3.8 10 ^3/uL (1.6-8.6); Neutrophils % (auto) 69.9 % (37.0-80.0); Nucleated Red Blood Cells % 0.1 %; Red Blood Cells 3.78 10^6/uL (4.5-5.90); Red Cell Distribution Width 15.6 % (11.8-14.3); White Blood Cell 5.4 10^3/uL (4.4-10.8)
[2023-07-29 07:41] LABS: Alanine Aminotransferase 11 U/L (7-40); Albumin 3.7 g/dL (3.2-4.8); Alkaline Phosphatase 377 U/L (46-116); Anion Gap 7 (5-15); Aspartate Aminotransferase 34 U/L (13-40); BUN/Creatinine Ratio 6.2 (10.0-20.0); Blood Urea Nitrogen 27 mg/dL (9-23); Calcium 8.2 mg/dL (8.5-10.1); Carbon Dioxide 33 mmol/L (20-30); Chloride 96 mmol/L (98-107); Glucose 136 mg/dL (74-106); Potassium 4.3 mmol/L (3.5-5.1); Sodium 136 mmol/L (136-145)
[2023-07-29 07:42] LABS: Bilirubin, Total 1.4 mg/dL (0.2-1.0); Total Protein 7.1 g/dL (5.7-8.2)
[2023-07-29] MEDS: SEVELAMER 800 MG TAB PO SCH (08:24)
[2023-07-29 08:31] VITALS: RESP 15; O2SAT 96
[2023-07-29 09:24] VITALS: RESP 14
[2023-07-29] MEDS: CINACALCET HYDROCHLORIDE 30 MG TAB PO SCH (10:00)
[2023-07-29] MEDS: busPIRone HCL 10 MG TAB PO SCH (10:25)
[2023-07-29] MEDS: LOSARTAN POTASSIUM 50 MG TAB PO SCH (10:26)
[2023-07-29] MEDS: SERTRALINE HCL 50 MG TAB PO SCH (10:27)
[2023-07-29] MEDS: PANTOPRAZOLE 40 MG TAB PO SCH (10:27)
[2023-07-29] MEDS ORDERED: DORZ2SOL17 LEFTEYE (16:02)
[2023-07-29] MEDS ORDERED: LIDO2.5C3 TOP (16:08)
[2023-07-29] MEDS ORDERED: PATI1POW PO (16:08)
[2023-07-29] MEDS ORDERED: PRED1SUS4 LEFTEYE (16:08)
[2023-07-29 16:32] VITALS: O2SAT 97
[2023-07-29 17:34] VITALS: BP 129/65; PULSE 88; TEMP 97.2
[2023-07-30] MEDS ORDERED: SODIUM CHL 0.9% 1000 ML BAG XX ONE (07:00)
[2023-07-30] MEDS ORDERED: CALCITRIOL 0.25 MCG CAP PO SCH (10:00)
== END 2023-07-29 17:50 | disposition home or self-care (01) | DRG 637 ==
LOC: ER 14:34 → EDBD 14:34 → TELE 18:22
PROVIDERS: ADMIT Nurse Practitioner Family; ATTEND Nurse Practitioner Acute Care
DX: E11.649 Type 2 diabetes mellitus with hypoglycemia without coma (principal); G93.41 Metabolic encephalopathy; I13.2 Hypertensive heart and chronic kidney disease with heart failure and with stage 5 chronic kidney disease, or end stage renal disease; I16.9 Hypertensive crisis, unspecified; N18.6 End stage renal disease; N25.81 Secondary hyperparathyroidism of renal origin; E83.39 Other disorders of phosphorus metabolism; H40.9 Unspecified glaucoma; E78.5 Hyperlipidemia, unspecified; I50.9 Heart failure, unspecified; D63.1 Anemia in chronic kidney disease; H54.62 Unqualified visual loss, left eye, normal vision right eye; E11.22 Type 2 diabetes mellitus with diabetic chronic kidney disease; Z99.2 Dependence on renal dialysis; Z87.442 Personal history of urinary calculi; Z82.49 Family history of ischemic heart disease and other diseases of the circulatory system; Z83.3 Family history of diabetes mellitus; R53.1 Weakness; R74.01 Elevation of levels of liver transaminase levels
CPT/HCPCS: 36415; 70450; 71045; 80053; 82962; 84484; 85025; 93005; G0378; J1815

== ENCOUNTER 2023-08-21 10:20 | Inpatient (IN) | payer OTHER, MEDICAID ==
[~2023-08-21] VITALS: Ht 180.3 cm; Wt 85.2 kg
[~2023-08-21 10:20] MED LIST changes: +DORZ2SOL17 LEFTEYE; -DORZ2SOL18 EACHEYE; -HYDR-4297 PO; +HYDR50TA47 PO; -LEVO250T58 PO; +LIDO2.5C3 TOP; +LOSA-534 PO; -LOSA50TA46 PO; +PATI1POW PO; +PRED1SUS4 LEFTEYE
[2023-08-21 10:40] VITALS: PULSE 74; RESP 16; O2SAT 76
[2023-08-21] MEDS: ONDANSETRON HCL 4 MG/2 ML VIAL IV ONE (10:45)
[2023-08-21 11:04] LABS: Basophils # (auto) 0 10 ^3/uL (0-0.2); Basophils % (auto) 0.5 % (0.0-2.0); Eosinophils # (auto) 0 10 ^3/uL (0-0.8); Eosinophils % (auto) 0.2 % (0.0-7.0); Hematocrit 38.2 % (41.0-53.0); Hemoglobin 12.6 g/dL (13.5-17.5); Lymphocytes # (auto) 0.7 10 ^3/uL (0.4-5.4); Lymphocytes % (auto) 9.3 % (10.0-50.0); Mean Corpuscular Hemoglobin 32.2 pg (28.0-32.0); Mean Corpuscular Volume 97.7 fL (80.0-100.0); Monocytes # (auto) 0.9 10 ^3/uL (0-1.3); Monocytes % (auto) 10.9 % (0.0-12.0); Neutrophils # (auto) 6.2 10 ^3/uL (1.6-8.6); Neutrophils % (auto) 79.1 % (37.0-80.0); Red Blood Cells 3.91 10^6/uL (4.5-5.90); White Blood Cell 7.8 10^3/uL (4.4-10.8)
[2023-08-21 11:20] LABS: Alanine Aminotransferase 47 U/L (7-40); Albumin 3.6 g/dL (3.2-4.8); Alkaline Phosphatase 392 U/L (46-116); Anion Gap 6 (5-15); Aspartate Aminotransferase 82 U/L (13-40); BUN/Creatinine Ratio 8.3 (10.0-20.0); Blood Urea Nitrogen 33 mg/dL (9-23); Calcium 8.6 mg/dL (8.5-10.1); Carbon Dioxide 34 mmol/L (20-30); Chloride 95 mmol/L (98-107); Glucose 85 mg/dL (74-106); Potassium 4.7 mmol/L (3.5-5.1); Sodium 135 mmol/L (136-145)
[2023-08-21 11:21] LABS: Total Protein 7.3 g/dL (5.7-8.2)
[2023-08-21] MEDS: prednisoLONE ACETATE 1% OPTH SUSP 5ML LEFTEYE SCH (13:09)
[2023-08-21] MEDS ORDERED: DOCUSATE SOD 100 MG CAP PO PRN (13:15)
[2023-08-21] MEDS ORDERED: ACETAMINOPHEN 325 MG TAB PO PRN (13:15)
[2023-08-21] MEDS ORDERED: MORPHINE SULFATE INJ 2 MG/ml SYRG IV PRN (13:15)
[2023-08-21] MEDS ORDERED: ONDANSETRON HCL 4 MG/2 ML VIAL IV PRN ×2 (13:15)
[2023-08-21] MEDS ORDERED: NITROGLYCERIN 0.4 MG SL TAB SL PRN (13:15)
[2023-08-21] MEDS ORDERED: LACTULOSE 20Gm/30ML SOLN PO PRN (13:15)
[2023-08-21] MEDS ORDERED: HYDROcodone-ACET 5/325MG TAB PO PRN ×2 (13:15)
[2023-08-21] MEDS: hydrALAZINE HCL 20 MG/ML VL IV ONE (13:21)
[2023-08-21] MEDS: PANTOPRAZOLE 40 MG/10 ML VIAL INJ IV ONE (13:29)
[2023-08-21] MEDS: CALCIUM CARB 500 MG CHEW TAB PO ONE (13:29)
[2023-08-21] MEDS: LACTULOSE 20Gm/30ML SOLN PO ONE (13:29)
[2023-08-21] MEDS: PATIROMER PO ONE (13:30)
[2023-08-21] MEDS ORDERED: DEXTROSE (50%) 50ML SYRG IV PRN (13:45)
[2023-08-21] MEDS ORDERED: PATIENTS OWN MEDICATION (Sevelamer Carbonate (Renvela) 2 TAB) PO SCH (14:00)
[2023-08-21] MEDS: InsuLIN REG 1unit/0.01ml Soln (100units/ml) SC SCH (17:00)
[2023-08-21] MEDS: ACCU-CHEK COMFORT CURVE STRIP VI SCH (17:18)
[2023-08-21] MEDS: CALCIUM CARB 500 MG CHEW TAB PO SCH (18:05)
[2023-08-21] MEDS: SEVELAMER 800 MG TAB PO SCH (18:06)
[2023-08-21 19:25] VITALS: PULSE 67; RESP 22; O2SAT 97
[2023-08-21] MEDS: CARVEDILOL 12.5 MG TAB PO SCH (22:06)
[2023-08-21] MEDS: DORZOLAMIDE HCL 2% OPTH(EYE) SOL 10ML LEFTEYE SCH (22:06)
[2023-08-21] MEDS: amLODIPine BESYLATE 5 MG TAB PO SCH (22:07)
[2023-08-21] MEDS: TIMOLOL MAL 0.5% OPTH(EYE) SOL 5ML LEFTEYE SCH (22:36)
[2023-08-22] VITALS (8 sets, daily range): BP systolic 92–165; BP diastolic 62–81; PULSE 60–87; RESP 14–19; TEMP 97.8–98.3; O2SAT 90–99
[2023-08-22 06:27] LABS: Basophils # (auto) 0.1 10 ^3/uL (0-0.2); Basophils % (auto) 0.9 % (0.0-2.0); Eosinophils # (auto) 0.1 10 ^3/uL (0-0.8); Eosinophils % (auto) 2.1 % (0.0-7.0); Hematocrit 35.1 % (41.0-53.0); Hemoglobin 11.8 g/dL (13.5-17.5); Lymphocytes # (auto) 0.9 10 ^3/uL (0.4-5.4); Lymphocytes % (auto) 13.6 % (10.0-50.0); Mean Corpuscular Hemoglobin 32.7 pg (28.0-32.0); Mean Corpuscular Hgb Conc. 33.8 g/dL (32.0-36.0); Monocytes % (auto) 15.2 % (0.0-12.0); Neutrophils # (auto) 4.7 10 ^3/uL (1.6-8.6); Neutrophils % (auto) 68.2 % (37.0-80.0); Red Blood Cells 3.62 10^6/uL (4.5-5.90); Red Cell Distribution Width 15.8 % (11.8-14.3); White Blood Cell 6.9 10^3/uL (4.4-10.8)
[2023-08-22 06:42] LABS: Alanine Aminotransferase 49 U/L (7-40); Albumin 3.5 g/dL (3.2-4.8); Alkaline Phosphatase 358 U/L (46-116); Anion Gap 9 (5-15); Aspartate Aminotransferase 76 U/L (13-40); BUN/Creatinine Ratio 8.8 (10.0-20.0); Bilirubin, Total 1.1 mg/dL (0.2-1.0); Calcium 8.6 mg/dL (8.5-10.1); Carbon Dioxide 31 mmol/L (20-30); Chloride 97 mmol/L (98-107); Glucose 107 mg/dL (74-106); Potassium 4.8 mmol/L (3.5-5.1); Sodium 137 mmol/L (136-145)
[2023-08-22 06:46] LABS: Blood Urea Nitrogen 45 mg/dL (9-23)
[2023-08-22] MEDS ORDERED: SODIUM CHL 0.9% 1000 ML BAG XX ONE (07:00)
[2023-08-22] MEDS ORDERED: PATIENTS OWN MEDICATION (B-Complex W/ C & Folic Acid (Nephro-Vite) 1 TAB) PO SCH (10:00)
[2023-08-22] MEDS ORDERED: PATIROMER SORBITEX CALCIUM PO SCH (10:00)
[2023-08-22] MEDS: CINACALCET HYDROCHLORIDE 30 MG TAB PO SCH (10:00)
[2023-08-22] MEDS: LOSARTAN POTASSIUM 50 MG TAB PO SCH (10:00)
[2023-08-22 10:16] LABS: INR 1.36 (0.9-1.15); Partial Thromboplastin Time 31.8 SEC (24.5-34.5)
[2023-08-22 10:19] LABS: Lipase 62 U/L (12-53)
[2023-08-22 10:21] LABS: Amylase 76 U/L (30-118)
[2023-08-22] MEDS: SERTRALINE HCL 50 MG TAB PO SCH (11:58)
[2023-08-22] MEDS: B-COMPLEX W/ C & FOLIC ACID(NEPHROVITE TAB) PO SCH (11:59)
[2023-08-22] MEDS: PANTOPRAZOLE 40 MG/10 ML VIAL INJ IV SCH (11:59)
[2023-08-22] MEDS: ASPirin-EC 81 mg tab PO ONE (14:58)
[2023-08-22] MEDS ORDERED: amLODIPine BESYLATE 5 MG TAB ONE (22:02)
[2023-08-23] VITALS (8 sets, daily range): BP systolic 118–160; BP diastolic 62–79; PULSE 58–68; RESP 16–22; TEMP 97.6–98.5; O2SAT 90–99
[2023-08-23] MEDS: ACETAMINOPHEN 325 MG TAB PO PRN (06:13)
[2023-08-23] MEDS ORDERED: CALCITRIOL 0.5 MCG PO SCH (10:00)
[2023-08-23] MEDS: ASPirin-EC 81 mg tab PO SCH (10:30)
[2023-08-23] MEDS: CALCITRIOL 0.25 MCG CAP PO SCH (10:31)
[2023-08-23 12:30] LABS: Alanine Aminotransferase 60 U/L (7-40); Anion Gap 6 (5-15); Aspartate Aminotransferase 67 U/L (13-40); BUN/Creatinine Ratio 8.5 (10.0-20.0); Blood Urea Nitrogen 41 mg/dL (9-23); Calcium 8.7 mg/dL (8.5-10.1); Carbon Dioxide 33 mmol/L (20-30); Chloride 100 mmol/L (98-107); Cholesterol 136 mg/dL (< 200); Glucose 142 mg/dL (74-106); HDL Cholesterol 37 mg/dL (40-59); LDL Cholesterol 82 mg/dL (< 100); Potassium 4.4 mmol/L (3.5-5.1); Sodium 139 mmol/L (136-145); Triglycerides 74 mg/dL (< 150)
[2023-08-23 12:41] LABS: Magnesium 2.3 mg/dL (1.6-2.6)
[2023-08-23 12:57] LABS: COVID19 ANTIGEN SOFIA FIA NEGATIVE (NEGATIVE)
[2023-08-23] MEDS: cefTRIAXone 1GM/50ML D5W 50 ML IV ONE (18:33)
[2023-08-23] MEDS: HEPARIN SODIUM (PORCINE) 5000 UNITS/ML 1ML VIAL SC SCH (23:07)
[2023-08-24] VITALS (9 sets, daily range): BP systolic 145–173; BP diastolic 72–83; PULSE 57–69; RESP 15–20; TEMP 97.6–98.3; O2SAT 94–99
[2023-08-24] MEDS: hydrALAZINE HCL 20 MG/ML VL IV PRN (05:39)
[2023-08-24 06:34] LABS: Alanine Aminotransferase 57 U/L (7-40); Albumin 3.8 g/dL (3.2-4.8); Alkaline Phosphatase 437 U/L (46-116); Anion Gap 5 (5-15); Aspartate Aminotransferase 57 U/L (13-40); BUN/Creatinine Ratio 8.2 (10.0-20.0); Basophils # (auto) 0.1 10 ^3/uL (0-0.2); Bilirubin, Total 1.3 mg/dL (0.2-1.0); Blood Urea Nitrogen 48 mg/dL (9-23); Calcium 9.4 mg/dL (8.7-10.4); Carbon Dioxide 34 mmol/L (20-30); Chloride 99 mmol/L (98-107); Eosinophils # (auto) 0.2 10 ^3/uL (0-0.8); Eosinophils % (auto) 3.5 % (0.0-7.0); Glucose 79 mg/dL (74-106); Hematocrit 34.3 % (41.0-53.0); Hemoglobin 11.5 g/dL (13.5-17.5); Lymphocytes # (auto) 0.5 10 ^3/uL (0.4-5.4); Lymphocytes % (auto) 8.5 % (10.0-50.0); Mean Corpuscular Hemoglobin 32.6 pg (28.0-32.0); Mean Corpuscular Hgb Conc. 33.5 g/dL (32.0-36.0); Mean Corpuscular Volume 97.3 fL (80.0-100.0); Monocytes # (auto) 0.8 10 ^3/uL (0-1.3); Monocytes % (auto) 13.2 % (0.0-12.0); Neutrophils # (auto) 4.7 10 ^3/uL (1.6-8.6); Neutrophils % (auto) 73.8 % (37.0-80.0); Potassium 4.7 mmol/L (3.5-5.1); Red Blood Cells 3.53 10^6/uL (4.5-5.90); Red Cell Distribution Width 15.6 % (11.8-14.3); Sodium 138 mmol/L (136-145); Total Protein 7.6 g/dL (5.7-8.2); White Blood Cell 6.4 10^3/uL (4.4-10.8)
[2023-08-24] MEDS: cefTRIAXone 1GM/50ML D5W 50 ML IV SCH (08:02)
[2023-08-24 08:20] LABS: Rapid Influenza A Negative (Negative); Rapid Influenza B Negative (Negative)
[2023-08-24 10:23] LABS: Base Excess 1.8 mmol/L (-2.0-2.0)
[2023-08-24] MEDS: LACTULOSE 20Gm/30ML SOLN PO ONE (10:52)
[2023-08-24] MEDS: LACTULOSE 20Gm/30ML SOLN PO SCH (21:41)
[2023-08-25] VITALS (7 sets, daily range): BP systolic 128–174; BP diastolic 59–84; PULSE 57–68; RESP 16–20; TEMP 97.3–98.5; O2SAT 92–99
[2023-08-25] MEDS ORDERED: SODIUM CHL 0.9% 1000 ML BAG XX ONE (07:00)
[2023-08-25] MEDS: hydrALAZINE HCL 20 MG/ML VL IV PRN (18:39)
[2023-08-25] MEDS: traMADol HCL 50 MG TAB PO PRN (22:08)
[2023-08-26 01:00] VITALS: BP 154/75; PULSE 62; RESP 20; TEMP 98.3; O2SAT 93
[2023-08-26 05:00] VITALS: BP 148/70; PULSE 64; RESP 20; TEMP 98.2; O2SAT 97
[2023-08-26 07:16] LABS: Alanine Aminotransferase 34 U/L (7-40); Albumin 3.3 g/dL (3.2-4.8); Alkaline Phosphatase 352 U/L (46-116); Anion Gap 6 (5-15); Aspartate Aminotransferase 36 U/L (13-40); BUN/Creatinine Ratio 6.2 (10.0-20.0); Bilirubin, Total 1.2 mg/dL (0.2-1.0); Blood Urea Nitrogen 35 mg/dL (9-23); Calcium 8.2 mg/dL (8.5-10.1); Carbon Dioxide 30 mmol/L (20-30); Chloride 99 mmol/L (98-107); Glucose 92 mg/dL (74-106); Potassium 4.3 mmol/L (3.5-5.1); Sodium 135 mmol/L (136-145); Total Protein 6.4 g/dL (5.7-8.2)
[2023-08-26 07:18] LABS: Basophils # (auto) 0 10 ^3/uL (0-0.2); Basophils % (auto) 0.5 % (0.0-2.0); Eosinophils # (auto) 0.1 10 ^3/uL (0-0.8); Hematocrit 33.9 % (41.0-53.0); Hemoglobin 11.4 g/dL (13.5-17.5); Lymphocytes # (auto) 0.7 10 ^3/uL (0.4-5.4); Lymphocytes % (auto) 9.7 % (10.0-50.0); Mean Corpuscular Hemoglobin 32.8 pg (28.0-32.0); Mean Corpuscular Hgb Conc. 33.6 g/dL (32.0-36.0); Mean Corpuscular Volume 97.5 fL (80.0-100.0); Monocytes # (auto) 0.6 10 ^3/uL (0-1.3); Monocytes % (auto) 8.2 % (0.0-12.0); Neutrophils # (auto) 5.8 10 ^3/uL (1.6-8.6); Neutrophils % (auto) 79.6 % (37.0-80.0); Nucleated Red Blood Cells % 0.1 %; Red Blood Cells 3.47 10^6/uL (4.5-5.90); Red Cell Distribution Width 15.8 % (11.8-14.3); White Blood Cell 7.3 10^3/uL (4.4-10.8)
[2023-08-26 08:00] VITALS: PULSE 61
[2023-08-26 17:00] VITALS: BP 140/64; PULSE 57; RESP 20; TEMP 98.4; O2SAT 92
== END 2023-08-26 19:05 | disposition home or self-care (01) | DRG 280 ==
LOC: EDBD 10:20 → ER 10:20 → EDUNIT# 10:20 → TELE-CENTR 13:14 → TELE 13:14 → TELE-CENTR 08-22 02:28
PROVIDERS: ADMIT Nurse Practitioner Family; ATTEND Internal Medicine
PROC: 5A1D70Z Performance of Urinary Filtration, Intermittent, Less than 6 Hours Per Day (ICD-10-PCS; 2023-08-22)
PROC: 0W993ZZ Drainage of Right Pleural Cavity, Percutaneous Approach (ICD-10-PCS; principal; 2023-08-25)
DX: I13.2 Hypertensive heart and chronic kidney disease with heart failure and with stage 5 chronic kidney disease, or end stage renal disease (principal); I50.33 Acute on chronic diastolic (congestive) heart failure; I21.A1 Myocardial infarction type 2; N18.6 End stage renal disease; J96.01 Acute respiratory failure with hypoxia; R18.8 Other ascites; J90 Pleural effusion, not elsewhere classified; K74.60 Unspecified cirrhosis of liver; Z99.2 Dependence on renal dialysis; K59.00 Constipation, unspecified; R74.01 Elevation of levels of liver transaminase levels; E11.22 Type 2 diabetes mellitus with diabetic chronic kidney disease; I16.0 Hypertensive urgency; K52.9 Noninfective gastroenteritis and colitis, unspecified; K76.0 Fatty (change of) liver, not elsewhere classified; J20.9 Acute bronchitis, unspecified; D69.6 Thrombocytopenia, unspecified; H40.9 Unspecified glaucoma; H54.62 Unqualified visual loss, left eye, normal vision right eye; N20.0 Calculus of kidney; K57.30 Diverticulosis of large intestine without perforation or abscess without bleeding; Z87.442 Personal history of urinary calculi; Z83.3 Family history of diabetes mellitus; Z82.49 Family history of ischemic heart disease and other diseases of the circulatory system; Z91.199 Patient's noncompliance with other medical treatment and regimen due to unspecified reason
CPT/HCPCS: 32555; 36415; 36600; 71045; 74176; 76604; 76700; 76705; 76942; 80048; 80053; 80061; 82140; 82150; 82805; 82962; 83036; 83615; 83690; 83735; 83880; 84443; 84450; 84460; 84484; 85025; 85610; 85730; 87340; 87426; 87804; 90935; 93005; 97110; 97163; C9113; G0378; J1815

== ENCOUNTER 2023-09-15 19:26 | Emergency (ER) | payer OTHER, MEDICAID ==
[~2023-09-15] VITALS: Ht 167.6 cm; Wt 72.6 kg
[2023-09-15 19:54] VITALS: BP 185/86; PULSE 72; RESP 16; O2SAT 93
== END 2023-09-15 20:25 | disposition left against medical advice (07) ==
LOC: ER 19:26 → EDUNIT# 19:26 → EDBD 19:26 → ER 20:25
DX: H57.9 Unspecified disorder of eye and adnexa (principal); R11.2 Nausea with vomiting, unspecified; Z53.21 Procedure and treatment not carried out due to patient leaving prior to being seen by health care provider

== ENCOUNTER 2023-09-25 15:08 | Inpatient (IN) | payer OTHER, MEDICAID ==
[~2023-09-25] VITALS: Ht 180.3 cm; Wt 77.7 kg
[2023-09-25 16:04] LABS: Basophils # (auto) 0.1 10 ^3/uL (0-0.2); Basophils % (auto) 0.8 % (0.0-2.0); Eosinophils # (auto) 0.3 10 ^3/uL (0-0.8); Eosinophils % (auto) 3.7 % (0.0-7.0); Hematocrit 36.4 % (41.0-53.0); Hemoglobin 12.1 g/dL (13.5-17.5); Lymphocytes # (auto) 1.2 10 ^3/uL (0.4-5.4); Lymphocytes % (auto) 17.2 % (10.0-50.0); Mean Corpuscular Hemoglobin 32.1 pg (28.0-32.0); Mean Corpuscular Hgb Conc. 33.3 g/dL (32.0-36.0); Mean Corpuscular Volume 96.5 fL (80.0-100.0); Monocytes # (auto) 0.9 10 ^3/uL (0-1.3); Monocytes % (auto) 12.8 % (0.0-12.0); Neutrophils # (auto) 4.6 10 ^3/uL (1.6-8.6); Neutrophils % (auto) 65.5 % (37.0-80.0); Nucleated Red Blood Cells % 0.1 %; Red Blood Cells 3.78 10^6/uL (4.5-5.90); Red Cell Distribution Width 17.1 % (11.8-14.3)
[2023-09-25 16:40] LABS: Alanine Aminotransferase 27 U/L (7-40); Albumin 3.8 g/dL (3.2-4.8); Alkaline Phosphatase 385 U/L (46-116); Anion Gap 8 (5-15); Aspartate Aminotransferase 37 U/L (13-40); BUN/Creatinine Ratio 7.6 (10.0-20.0); Bilirubin, Total 1.6 mg/dL (0.2-1.0); Blood Urea Nitrogen 39 mg/dL (9-23); Calcium 8.5 mg/dL (8.5-10.1); Carbon Dioxide 34 mmol/L (20-30); Chloride 95 mmol/L (98-107); Glucose 99 mg/dL (74-106); Sodium 137 mmol/L (136-145); Total Protein 7.7 g/dL (5.7-8.2)
[2023-09-25] MEDS ORDERED: FUROSEMIDE 40 MG/4 ML VIAL IV ONE (17:15)
[2023-09-25 18:35] VITALS: PULSE 66; RESP 19; O2SAT 96
[2023-09-25] MEDS: HYDROcodone-ACET 5/325MG TAB PO ONE (19:50)
[2023-09-25] MEDS ORDERED: NITROGLYCERIN 0.4 MG SL TAB SL PRN (20:45)
[2023-09-25] MEDS ORDERED: ACETAMINOPHEN 325 MG TAB PO PRN ×2 (20:45)
[2023-09-25] MEDS ORDERED: MORPHINE SULFATE INJ 2 MG/ml SYRG IV PRN (20:45)
[2023-09-25] MEDS ORDERED: DOCUSATE SOD 100 MG CAP PO PRN (20:45)
[2023-09-25] MEDS: DORZOLAMIDE HCL 2% OPTH(EYE) SOL 10ML LEFTEYE SCH (22:00)
[2023-09-25] MEDS: SODIUM CHLOR 0.9% PF (SALINE LOCK) 10ML VIAL/SYR IV SCH (22:54)
[2023-09-25] MEDS: hydrALAZINE HCL 25 MG TAB PO SCH (22:56)
[2023-09-25] MEDS: prednisoLONE ACETATE 1% OPTH SUSP 5ML LEFTEYE SCH (22:56)
[2023-09-25] MEDS: CARVEDILOL 12.5 MG TAB PO SCH (22:57)
[2023-09-25] MEDS: amLODIPine BESYLATE 5 MG TAB PO SCH (22:57)
[2023-09-25] MEDS: TIMOLOL MAL 0.5% OPTH(EYE) SOL 5ML LEFTEYE SCH (23:01)
[2023-09-25 23:49] VITALS: BP 142/70; PULSE 60; RESP 18; TEMP 97.5; O2SAT 97
[2023-09-26] VITALS (8 sets, daily range): BP systolic 130–162; BP diastolic 66–76; PULSE 56–69; RESP 16–18; TEMP 97.4–98.5; O2SAT 95–99
[2023-09-26] MEDS: HYDROcodone-ACET 5/325MG TAB PO PRN (02:38)
[2023-09-26] MEDS: SODIUM CHL 0.9% 1000 ML BAG XX ONE (07:00)
[2023-09-26 07:03] LABS: % Iron Saturation 55.7 % (20-55)
[2023-09-26 07:05] LABS: Basophils # (auto) 0.1 10 ^3/uL (0-0.2); Basophils % (auto) 1.1 % (0.0-2.0); Eosinophils # (auto) 0.3 10 ^3/uL (0-0.8); Eosinophils % (auto) 5.3 % (0.0-7.0); Hemoglobin 11.3 g/dL (13.5-17.5); Lymphocytes # (auto) 1.1 10 ^3/uL (0.4-5.4); Lymphocytes % (auto) 16.4 % (10.0-50.0); Mean Corpuscular Hemoglobin 32.2 pg (28.0-32.0); Mean Corpuscular Hgb Conc. 33.3 g/dL (32.0-36.0); Mean Corpuscular Volume 96.9 fL (80.0-100.0); Monocytes # (auto) 0.9 10 ^3/uL (0-1.3); Monocytes % (auto) 13.4 % (0.0-12.0); Neutrophils # (auto) 4.2 10 ^3/uL (1.6-8.6); Neutrophils % (auto) 63.8 % (37.0-80.0); Red Cell Distribution Width 16.8 % (11.8-14.3); White Blood Cell 6.6 10^3/uL (4.4-10.8)
[2023-09-26 07:09] LABS: Alanine Aminotransferase 19 U/L (7-40); Albumin 3.5 g/dL (3.2-4.8); Alkaline Phosphatase 353 U/L (46-116); Anion Gap 10 (5-15); BUN/Creatinine Ratio 8.1 (10.0-20.0); Blood Urea Nitrogen 48 mg/dL (9-23); Calcium 8.2 mg/dL (8.5-10.1); Carbon Dioxide 32 mmol/L (20-30); Chloride 97 mmol/L (98-107); Glucose 68 mg/dL (74-106); Potassium 3.9 mmol/L (3.5-5.1); Sodium 139 mmol/L (136-145)
[2023-09-26 07:10] LABS: Aspartate Aminotransferase 33 U/L (13-40); Bilirubin, Total 1.2 mg/dL (0.2-1.0); Total Protein 7.1 g/dL (5.7-8.2)
[2023-09-26 08:27] LABS: INR 1.11 (0.9-1.15); Partial Thromboplastin Time 29.1 SEC (24.5-34.5); Prothrombin Time 11.7 sec (9.3-11.8)
[2023-09-26] MEDS: PANTOPRAZOLE 40 MG TAB PO SCH (08:46)
[2023-09-26] MEDS: SEVELAMER 800 MG TAB PO SCH (08:47)
[2023-09-26] MEDS: busPIRone HCL 10 MG TAB PO SCH (08:47)
[2023-09-26] MEDS: LOSARTAN POTASSIUM 50 MG TAB PO SCH (09:55)
[2023-09-26] MEDS: B-COMPLEX W/ C & FOLIC ACID(NEPHROVITE TAB) PO SCH (09:55)
[2023-09-26] MEDS ORDERED: DEXTROSE (50%) 50ML SYRG IV PRN (10:00)
[2023-09-26] MEDS: InsuLIN REG 1unit/0.01ml Soln (100units/ml) SC SCH (11:30)
[2023-09-26] MEDS: ACCU-CHEK COMFORT CURVE STRIP VI SCH (11:52)
[2023-09-26] MEDS: AMOXICILLIN/CLAVULAN 500 MG TAB PO SCH (12:52)
[2023-09-26] MEDS: OFLOXACIN OTIC(EAR) 0.3 % DROP 5ML LEFT EAR SCH (12:52)
[2023-09-26 14:51] LABS: Body Fluid Polymorphonuclear 3 % (0-25); Body Fluid Red Blood Cells 73 CUMM (0-2000); Body Fluid White Blood Cells 63 CUMM (0-200)
[2023-09-26] MEDS: ONDANSETRON HCL 4 MG/2 ML VIAL IV PRN (21:53)
[2023-09-27] VITALS (8 sets, daily range): BP systolic 128–166; BP diastolic 66–75; PULSE 61–66; RESP 16–20; TEMP 97.4–98.6; O2SAT 90–100
[2023-09-27 06:07] LABS: Basophils # (auto) 0.1 10 ^3/uL (0-0.2); Basophils % (auto) 1.1 % (0.0-2.0); Eosinophils # (auto) 0.4 10 ^3/uL (0-0.8); Eosinophils % (auto) 4.4 % (0.0-7.0); Hematocrit 35.4 % (41.0-53.0); Hemoglobin 11.8 g/dL (13.5-17.5); Lymphocytes # (auto) 1.2 10 ^3/uL (0.4-5.4); Lymphocytes % (auto) 13.9 % (10.0-50.0); Mean Corpuscular Hemoglobin 32.6 pg (28.0-32.0); Mean Corpuscular Hgb Conc. 33.5 g/dL (32.0-36.0); Mean Corpuscular Volume 97.5 fL (80.0-100.0); Monocytes # (auto) 0.9 10 ^3/uL (0-1.3); Monocytes % (auto) 10.2 % (0.0-12.0); Neutrophils # (auto) 6.1 10 ^3/uL (1.6-8.6); Neutrophils % (auto) 70.4 % (37.0-80.0); Red Blood Cells 3.63 10^6/uL (4.5-5.90); Red Cell Distribution Width 17.2 % (11.8-14.3); White Blood Cell 8.7 10^3/uL (4.4-10.8)
[2023-09-27 06:13] LABS: Anion Gap 9 (5-15); Carbon Dioxide 31 mmol/L (20-30); Chloride 99 mmol/L (98-107); Potassium 4.3 mmol/L (3.5-5.1); Sodium 139 mmol/L (136-145)
[2023-09-27 06:15] LABS: Calcium 8.2 mg/dL (8.7-10.4)
[2023-09-27 06:19] LABS: BUN/Creatinine Ratio 7.9 (10.0-20.0); Blood Urea Nitrogen 47 mg/dL (9-23); Glucose 107 mg/dL (74-106)
[2023-09-27] MEDS: SODIUM CHL 0.9% 1000 ML BAG XX ONE (07:00)
[2023-09-27 12:06] LABS: Protein, Body Fluid 3.6 g/dL (.)
[2023-09-28 05:11] VITALS: BP 155/73; PULSE 67; RESP 18; TEMP 98.3; O2SAT 96
[2023-09-28 06:18] LABS: Basophils # (auto) 0.1 10 ^3/uL (0-0.2); Basophils % (auto) 0.9 % (0.0-2.0); Eosinophils # (auto) 0.3 10 ^3/uL (0-0.8); Eosinophils % (auto) 4.3 % (0.0-7.0); Hematocrit 35.1 % (41.0-53.0); Hemoglobin 11.6 g/dL (13.5-17.5); Lymphocytes # (auto) 1.4 10 ^3/uL (0.4-5.4); Lymphocytes % (auto) 16.6 % (10.0-50.0); Mean Corpuscular Hemoglobin 32.2 pg (28.0-32.0); Mean Corpuscular Volume 97.5 fL (80.0-100.0); Monocytes % (auto) 12.2 % (0.0-12.0); Neutrophils # (auto) 5.4 10 ^3/uL (1.6-8.6); Nucleated Red Blood Cells % 0.3 %; Red Cell Distribution Width 17.2 % (11.8-14.3); White Blood Cell 8.2 10^3/uL (4.4-10.8)
[2023-09-28 06:25] LABS: Anion Gap 10 (5-15); Carbon Dioxide 28 mmol/L (20-30); Chloride 99 mmol/L (98-107); Potassium 5.4 mmol/L (3.5-5.1); Sodium 137 mmol/L (136-145)
[2023-09-28 06:27] LABS: Calcium 8.8 mg/dL (8.5-10.1)
[2023-09-28 06:31] LABS: Glucose 84 mg/dL (74-106)
[2023-09-28 06:32] LABS: BUN/Creatinine Ratio 8.4 (10.0-20.0)
[2023-09-28 06:33] LABS: Blood Urea Nitrogen 62 mg/dL (9-23)
[2023-09-28 08:00] VITALS: PULSE 67; PULSE 68; RESP 18; O2SAT 93
[2023-09-28 08:42] VITALS: BP 152/75; PULSE 67; RESP 18; TEMP 98.2; O2SAT 93
[2023-09-28] MEDS ORDERED: AUG875T PO (10:45)
[2023-09-28 11:20] VITALS: BP 152/75; PULSE 67; RESP 18; TEMP 36.8; O2SAT 95
[2023-09-28 12:56] VITALS: BP 131/74; PULSE 61; RESP 18; TEMP 98.3; O2SAT 94
[2023-09-28] MEDS ORDERED: SODIUM ZIRCONIUM CYCL 10 GM PAK PO ONE (14:00)
== END 2023-09-28 14:20 | disposition home or self-care (01) | DRG 291 ==
LOC: ER 15:08 → TELE 21:01 → TELE-EAST 23:41
PROVIDERS: ADMIT Nurse Practitioner Family; ATTEND Family Medicine
PROC: 0W993ZZ Drainage of Right Pleural Cavity, Percutaneous Approach (ICD-10-PCS; principal; 2023-09-26)
PROC: 5A1D70Z Performance of Urinary Filtration, Intermittent, Less than 6 Hours Per Day (ICD-10-PCS; 2023-09-26)
DX: I13.2 Hypertensive heart and chronic kidney disease with heart failure and with stage 5 chronic kidney disease, or end stage renal disease (principal); I50.33 Acute on chronic diastolic (congestive) heart failure; J96.01 Acute respiratory failure with hypoxia; N18.6 End stage renal disease; I16.0 Hypertensive urgency; H66.92 Otitis media, unspecified, left ear; E11.22 Type 2 diabetes mellitus with diabetic chronic kidney disease; D64.9 Anemia, unspecified; I08.1 Rheumatic disorders of both mitral and tricuspid valves; H40.89 Other specified glaucoma; E87.5 Hyperkalemia; Z87.442 Personal history of urinary calculi; Z99.2 Dependence on renal dialysis; Z82.49 Family history of ischemic heart disease and other diseases of the circulatory system; Z83.3 Family history of diabetes mellitus; Z79.4 Long term (current) use of insulin; Z79.899 Other long term (current) drug therapy
CPT/HCPCS: 32555; 36415; 71045; 71250; 74176; 76942; 80048; 80053; 82728; 82962; 83540; 83550; 83880; 83986; 84484; 85025; 85610; 85730; 87070; 87081; 87205; 87340; 89051; 90935; 93306; G0378; J1815; J2405

== ENCOUNTER 2023-10-22 17:42 | Inpatient (IN) | payer OTHER, MEDICAID ==
[~2023-10-22] VITALS: Ht 180.3 cm; Wt 80.9 kg
[~2023-10-22 17:42] MED LIST changes: +AUG875T PO
[2023-10-22 18:30] VITALS: PULSE 61; RESP 16; O2SAT 93
[2023-10-22 19:47] LABS: Basophils # (auto) 0.1 10 ^3/uL (0-0.2); Basophils % (auto) 0.9 % (0.0-2.0); Eosinophils # (auto) 0.3 10 ^3/uL (0-0.8); Eosinophils % (auto) 3.7 % (0.0-7.0); Hematocrit 22.1 % (41.0-53.0); Hemoglobin 7.4 g/dL (13.5-17.5); Lymphocytes # (auto) 0.9 10 ^3/uL (0.4-5.4); Lymphocytes % (auto) 9.4 % (10.0-50.0); Mean Corpuscular Hemoglobin 32.4 pg (28.0-32.0); Mean Corpuscular Hgb Conc. 33.5 g/dL (32.0-36.0); Mean Corpuscular Volume 96.8 fL (80.0-100.0); Monocytes % (auto) 10.2 % (0.0-12.0); Neutrophils # (auto) 7.1 10 ^3/uL (1.6-8.6); Neutrophils % (auto) 75.8 % (37.0-80.0); Red Blood Cells 2.28 10^6/uL (4.5-5.90); Red Cell Distribution Width 15.7 % (11.8-14.3); White Blood Cell 9.4 10^3/uL (4.4-10.8)
[2023-10-22 20:00] VITALS: PULSE 64; RESP 22; O2SAT 98
[2023-10-22 20:09] LABS: Alanine Aminotransferase 28 U/L (7-40); Albumin 3.4 g/dL (3.2-4.8); Alkaline Phosphatase 414 U/L (46-116); Anion Gap 10 (5-15); Aspartate Aminotransferase 24 U/L (13-40); BUN/Creatinine Ratio 7.9 (10.0-20.0); Blood Urea Nitrogen 42 mg/dL (9-23); Calcium 9.1 mg/dL (8.5-10.1); Carbon Dioxide 30 mmol/L (20-30); Chloride 97 mmol/L (98-107); Glucose 134 mg/dL (74-106); Potassium 4.4 mmol/L (3.5-5.1); Sodium 137 mmol/L (136-145); Total Protein 6.8 g/dL (5.7-8.2)
[2023-10-22] MEDS: ACETAMINOPHEN 325 MG TAB PO ONE (21:31)
[2023-10-23] VITALS (8 sets, daily range): BP systolic 118–181; BP diastolic 55–86; PULSE 63–70; RESP 16–20; TEMP 98–98.2; O2SAT 95–98
[2023-10-23] MEDS: HYDROcodone-ACET 5/325MG TAB PO ONE (00:38)
[2023-10-23] MEDS ORDERED: ONDANSETRON HCL 4 MG/2 ML VIAL IV PRN (02:30)
[2023-10-23] MEDS ORDERED: DEXTROSE (50%) 50ML SYRG IV PRN (02:30)
[2023-10-23] MEDS: InsuLIN REG 1unit/0.01ml Soln (100units/ml) SC SCH (06:47)
[2023-10-23] MEDS: ACETAMINOPHEN 325 MG TAB PO PRN (06:47)
[2023-10-23] MEDS: ACCU-CHEK COMFORT CURVE STRIP VI SCH (06:50)
[2023-10-23] MEDS: SEVELAMER 800 MG TAB PO SCH (09:22)
[2023-10-23] MEDS: NIFEdipine ER 30 MG TAB PO SCH (09:23)
[2023-10-23] MEDS: LOSARTAN POTASSIUM 50 MG TAB PO SCH (09:23)
[2023-10-23] MEDS: amLODIPine BESYLATE 5 MG TAB PO SCH (09:23)
[2023-10-23 10:29] LABS: INR 1.09 (0.9-1.15); Partial Thromboplastin Time 28.8 SEC (24.5-34.5); Prothrombin Time 11.5 sec (9.3-11.8)
[2023-10-23] MEDS: TIMOLOL MAL 0.5% OPTH(EYE) SOL 5ML EACHEYE SCH (11:26)
[2023-10-23] MEDS ORDERED: TIMOLOL MAL 0.5% OPTH(EYE) SOL 5ML EACHEYE ONE (11:30)
[2023-10-23] MEDS: AMOXICILLIN/CLAVUL 875 MG TAB PO ONE (11:40)
[2023-10-23] MEDS: HYDROcodone-ACET 5/325MG TAB PO PRN (11:40)
[2023-10-23] MEDS: hydrALAZINE HCL 25 MG TAB PO SCH (14:46)
[2023-10-23] MEDS: cefTRIAXone 1GM/50ML D5W 50 ML IV ONE (14:46)
[2023-10-23] MEDS ORDERED: AMOXICILLIN/CLAVUL 875 MG TAB PO SCH (22:00)
[2023-10-23] MEDS ORDERED: hydrALAZINE HCL 25 MG TAB PO SCH (22:00)
[2023-10-23 22:44] LABS: Body Fluid Red Blood Cells 2 CUMM (0-2000); Body Fluid White Blood Cells 33 CUMM (0-200)
[2023-10-23 23:11] LABS: Body Fluid Polymorphonuclear 2 % (0-25)
[2023-10-24] VITALS (8 sets, daily range): BP systolic 114–142; BP diastolic 55–63; PULSE 58–70; RESP 15–20; TEMP 97.7–98.5; O2SAT 91–97
[2023-10-24 05:43] LABS: Basophils # (auto) 0.1 10 ^3/uL (0-0.2); Eosinophils # (auto) 0.4 10 ^3/uL (0-0.8); Eosinophils % (auto) 4.3 % (0.0-7.0); Hemoglobin 7.8 g/dL (13.5-17.5); Lymphocytes # (auto) 1.1 10 ^3/uL (0.4-5.4); Red Cell Distribution Width 16.4 % (11.8-14.3)
[2023-10-24 05:45] LABS: Basophils % (auto) 0.7 % (0.0-2.0); Hematocrit 22.8 % (41.0-53.0); Lymphocytes % (auto) 11.4 % (10.0-50.0); Mean Corpuscular Hemoglobin 33.5 pg (28.0-32.0); Mean Corpuscular Hgb Conc. 34.1 g/dL (32.0-36.0); Mean Corpuscular Volume 98.2 fL (80.0-100.0); Monocytes # (auto) 0.9 10 ^3/uL (0-1.3); Monocytes % (auto) 9.8 % (0.0-12.0); Neutrophils # (auto) 7.1 10 ^3/uL (1.6-8.6); Neutrophils % (auto) 73.8 % (37.0-80.0); Red Blood Cells 2.32 10^6/uL (4.5-5.90); White Blood Cell 9.6 10^3/uL (4.4-10.8)
[2023-10-24 05:52] LABS: Chloride 98 mmol/L (98-107); Sodium 139 mmol/L (136-145)
[2023-10-24 05:53] LABS: Anion Gap 12 (5-15); Calcium 9.1 mg/dL (8.7-10.4); Carbon Dioxide 29 mmol/L (20-30)
[2023-10-24 05:58] LABS: Glucose 167 mg/dL (74-106)
[2023-10-24 06:17] LABS: Blood Urea Nitrogen 60 mg/dL (9-23)
[2023-10-24 06:20] LABS: Potassium 5.6 mmol/L (3.5-5.1)
[2023-10-24] MEDS: SODIUM CHL 0.9% 1000 ML BAG XX ONE (07:00)
[2023-10-24] MEDS: cefTRIAXone 1GM/50ML D5W 50 ML IV SCH (09:56)
[2023-10-24] MEDS: PANTOPRAZOLE 40 MG TAB PO ONE (12:16)
[2023-10-24] MEDS: ONDANSETRON HCL 4 MG/2 ML VIAL IV PRN (17:12)
[2023-10-24] MEDS: EPOETIN ALFA-EPBX 10,000 UNIT/1ML VIAL SC ONE (21:24)
[2023-10-25] VITALS (7 sets, daily range): BP systolic 128–152; BP diastolic 62–90; PULSE 62–76; RESP 15–20; TEMP 98–98.4; O2SAT 92–98
[2023-10-25] MEDS: PANTOPRAZOLE 40 MG TAB PO SCH (06:03)
[2023-10-25 06:07] LABS: Eosinophils # (auto) 0.4 10 ^3/uL (0-0.8); Eosinophils % (auto) 4.1 % (0.0-7.0); Lymphocytes # (auto) 1.2 10 ^3/uL (0.4-5.4); Neutrophils # (auto) 6.4 10 ^3/uL (1.6-8.6); Red Blood Cells 2.21 10^6/uL (4.5-5.90); White Blood Cell 8.8 10^3/uL (4.4-10.8)
[2023-10-25 06:11] LABS: Basophils # (auto) 0.1 10 ^3/uL (0-0.2); Basophils % (auto) 0.7 % (0.0-2.0); Hematocrit 21.8 % (41.0-53.0); Hemoglobin 7.5 g/dL (13.5-17.5); Lymphocytes % (auto) 13.6 % (10.0-50.0); Mean Corpuscular Hemoglobin 33.7 pg (28.0-32.0); Mean Corpuscular Hgb Conc. 34.2 g/dL (32.0-36.0); Mean Corpuscular Volume 98.6 fL (80.0-100.0); Monocytes # (auto) 0.8 10 ^3/uL (0-1.3); Monocytes % (auto) 9.2 % (0.0-12.0); Neutrophils % (auto) 72.4 % (37.0-80.0); Red Cell Distribution Width 16.4 % (11.8-14.3)
[2023-10-25 06:17] LABS: % Iron Saturation 28.7 % (20-55)
[2023-10-25 10:07] LABS: Protein, Body Fluid 3.3 g/dL (.)
[2023-10-25 11:39] LABS: Alanine Aminotransferase 31 U/L (7-40); Albumin 3.4 g/dL (3.2-4.8); Alkaline Phosphatase 415 U/L (46-116); Anion Gap 8 (5-15); Aspartate Aminotransferase 23 U/L (13-40); BUN/Creatinine Ratio 7.1 (10.0-20.0); Calcium 9.2 mg/dL (8.5-10.1); Carbon Dioxide 31 mmol/L (20-30); Chloride 98 mmol/L (98-107); Glucose 128 mg/dL (74-106); Magnesium 2.2 mg/dL (1.6-2.6); Potassium 4.8 mmol/L (3.5-5.1); Sodium 137 mmol/L (136-145)
[2023-10-25 11:40] LABS: Bilirubin, Total 0.6 mg/dL (0.2-1.0); Total Protein 6.8 g/dL (5.7-8.2)
[2023-10-25 11:48] LABS: Blood Urea Nitrogen 37 mg/dL (9-23)
[2023-10-25] MEDS: CLINDAMYCIN 600MG IV 50 ML IV SCH (13:04)
[2023-10-25] MEDS: MORPHINE SULFATE INJ 2 MG/ml SYRG IV PRN (13:04)
[2023-10-26] MEDS: LORazepam 2MG/ML-1ML VIAL IV PRN (04:43)
[2023-10-26 05:00] VITALS: BP 113/65; PULSE 68; RESP 20; TEMP 97.5; O2SAT 94
[2023-10-26 08:00] VITALS: PULSE 70; RESP 16; O2SAT 95
[2023-10-26 09:00] VITALS: BP 143/80; PULSE 63; RESP 16; TEMP 98; O2SAT 90
[2023-10-26 09:29] LABS: Basophils # (auto) 0.1 10 ^3/uL (0-0.2); Basophils % (auto) 0.5 % (0.0-2.0); Eosinophils # (auto) 0.1 10 ^3/uL (0-0.8); Hemoglobin 8.2 g/dL (13.5-17.5)
[2023-10-26 09:30] LABS: Eosinophils % (auto) 0.9 % (0.0-7.0); Lymphocytes % (auto) 8.9 % (10.0-50.0); Mean Corpuscular Hemoglobin 33.5 pg (28.0-32.0); Mean Corpuscular Hgb Conc. 32.9 g/dL (32.0-36.0); Mean Corpuscular Volume 101.8 fL (80.0-100.0); Monocytes % (auto) 9.1 % (0.0-12.0); Neutrophils # (auto) 9.1 10 ^3/uL (1.6-8.6); Neutrophils % (auto) 80.6 % (37.0-80.0); Red Blood Cells 2.46 10^6/uL (4.5-5.90); Red Cell Distribution Width 16.9 % (11.8-14.3); White Blood Cell 11.2 10^3/uL (4.4-10.8)
[2023-10-26 09:33] LABS: Chloride 97 mmol/L (98-107); Sodium 135 mmol/L (136-145)
[2023-10-26 09:34] LABS: Anion Gap 10 (5-15); Carbon Dioxide 28 mmol/L (20-30)
[2023-10-26 09:35] LABS: Calcium 9.4 mg/dL (8.5-10.1)
[2023-10-26 09:39] LABS: BUN/Creatinine Ratio 6.9 (10.0-20.0); Glucose 137 mg/dL (74-106)
[2023-10-26 09:40] LABS: Magnesium 2.3 mg/dL (1.6-2.6)
[2023-10-26 09:49] LABS: Blood Urea Nitrogen 47 mg/dL (9-23)
[2023-10-26 09:50] LABS: Potassium 5.6 mmol/L (3.5-5.1)
[2023-10-26] MEDS: OFLOXACIN OTIC(EAR) 0.3 % DROP 5ML LEFT EAR ONE (11:45)
[2023-10-26] MEDS: hydrALAZINE HCL 25 MG TAB PO ONE (12:46)
[2023-10-26] MEDS: DOCUSATE SOD 100 MG CAP PO ONE (12:46)
[2023-10-26] MEDS: SERTRALINE HCL 50 MG TAB PO ONE (12:47)
[2023-10-26] MEDS: busPIRone HCL 10 MG TAB PO ONE (12:47)
[2023-10-26 13:00] VITALS: BP 149/74; PULSE 67; RESP 18; TEMP 97.5; O2SAT 91
[2023-10-26] MEDS: SODIUM ZIRCONIUM CYCL 10 GM PAK PO ONE (15:45)
[2023-10-26 17:00] VITALS: BP 123/61; PULSE 53; RESP 16; TEMP 98.3; O2SAT 92
[2023-10-26 19:30] VITALS: PULSE 80; RESP 19; O2SAT 96
[2023-10-26] MEDS: busPIRone HCL 10 MG TAB PO SCH (22:00)
[2023-10-27] VITALS (8 sets, daily range): BP systolic 106–151; BP diastolic 54–73; PULSE 46–63; RESP 12–18; TEMP 97.6–98.1; O2SAT 91–96
[2023-10-27 06:58] LABS: Basophils # (auto) 0.1 10 ^3/uL (0-0.2); Basophils % (auto) 0.8 % (0.0-2.0); Eosinophils # (auto) 0.2 10 ^3/uL (0-0.8); Mean Corpuscular Hemoglobin 33.4 pg (28.0-32.0); Monocytes # (auto) 1.1 10 ^3/uL (0-1.3); Neutrophils # (auto) 8.4 10 ^3/uL (1.6-8.6); White Blood Cell 11.2 10^3/uL (4.4-10.8)
[2023-10-27 07:00] LABS: Hematocrit 23.7 % (41.0-53.0); Lymphocytes # (auto) 1.3 10 ^3/uL (0.4-5.4); Mean Corpuscular Hgb Conc. 33.6 g/dL (32.0-36.0); Mean Corpuscular Volume 99.6 fL (80.0-100.0); Monocytes % (auto) 9.8 % (0.0-12.0); Neutrophils % (auto) 75.4 % (37.0-80.0); Red Blood Cells 2.38 10^6/uL (4.5-5.90); Red Cell Distribution Width 17.5 % (11.8-14.3)
[2023-10-27] MEDS: SODIUM CHL 0.9% 1000 ML BAG XX ONE (07:00)
[2023-10-27 07:41] LABS: Calcium 9.3 mg/dL (8.5-10.1); Chloride 98 mmol/L (98-107); Sodium 136 mmol/L (136-145)
[2023-10-27 07:42] LABS: Anion Gap 12 (5-15); Carbon Dioxide 26 mmol/L (20-30)
[2023-10-27 07:47] LABS: Glucose 91 mg/dL (74-106)
[2023-10-27 07:52] LABS: Blood Urea Nitrogen 58 mg/dL (9-23)
[2023-10-27 07:53] LABS: Potassium 5.7 mmol/L (3.5-5.1)
[2023-10-27 08:08] LABS: BUN/Creatinine Ratio 7.4 (10.0-20.0)
[2023-10-27] MEDS: OFLOXACIN OTIC(EAR) 0.3 % DROP 5ML LEFT EAR SCH (08:38)
[2023-10-27] MEDS: hydrALAZINE HCL 25 MG TAB PO SCH (10:00)
[2023-10-27] MEDS: DOCUSATE SOD 100 MG CAP PO SCH (10:00)
[2023-10-27] MEDS: SERTRALINE HCL 50 MG TAB PO SCH (10:11)
[2023-10-27] MEDS: SODIUM ZIRCONIUM CYCL 10 GM PAK PO ONE (18:36)
[2023-10-28] MEDS: EPOETIN ALFA-EPBX 4,000 UNIT/ML VIAL SC ONE (00:03)
[2023-10-28 01:00] VITALS: BP 140/58; PULSE 69; RESP 18; TEMP 98.2; O2SAT 91
[2023-10-28 05:00] VITALS: BP 132/54; PULSE 54; RESP 18; TEMP 98.2; O2SAT 92
[2023-10-28 07:11] LABS: Basophils # (auto) 0 10 ^3/uL (0-0.2); Basophils % (auto) 0.5 % (0.0-2.0); Eosinophils # (auto) 0.1 10 ^3/uL (0-0.8); Hematocrit 24.4 % (41.0-53.0); Lymphocytes # (auto) 0.6 10 ^3/uL (0.4-5.4); Lymphocytes % (auto) 5.9 % (10.0-50.0); Mean Corpuscular Hemoglobin 34.3 pg (28.0-32.0); Monocytes # (auto) 0.7 10 ^3/uL (0-1.3); Neutrophils % (auto) 86.1 % (37.0-80.0); Red Blood Cells 2.46 10^6/uL (4.5-5.90)
[2023-10-28 07:13] LABS: Anion Gap 11 (5-15); Calcium 9.4 mg/dL (8.7-10.4); Carbon Dioxide 30 mmol/L (20-30); Chloride 98 mmol/L (98-107); Eosinophils % (auto) 0.5 % (0.0-7.0); Hemoglobin 8.5 g/dL (13.5-17.5); Mean Corpuscular Hgb Conc. 34.7 g/dL (32.0-36.0); Mean Corpuscular Volume 98.9 fL (80.0-100.0); Neutrophils # (auto) 8.9 10 ^3/uL (1.6-8.6); Potassium 4.8 mmol/L (3.5-5.1); Red Cell Distribution Width 18.5 % (11.8-14.3); Sodium 139 mmol/L (136-145); White Blood Cell 10.3 10^3/uL (4.4-10.8)
[2023-10-28 07:19] LABS: BUN/Creatinine Ratio 6.6 (10.0-20.0); Glucose 66 mg/dL (74-106)
[2023-10-28 07:28] LABS: Blood Urea Nitrogen 37 mg/dL (9-23)
[2023-10-28 08:00] VITALS: PULSE 82; RESP 16; O2SAT 0
[2023-10-28 09:16] VITALS: BP 136/60; PULSE 64; RESP 17; TEMP 98; O2SAT 92
== END 2023-10-28 13:00 | disposition left against medical advice (07) | DRG 291 ==
LOC: EDBD 17:42 → ER 17:45 → OVERFLOW 10-23 02:41 → EAST 10-23 05:55
PROVIDERS: ADMIT Internal Medicine; ATTEND Internal Medicine
PROC: 0W993ZZ Drainage of Right Pleural Cavity, Percutaneous Approach (ICD-10-PCS; 2023-10-23)
PROC: 5A1D70Z Performance of Urinary Filtration, Intermittent, Less than 6 Hours Per Day (ICD-10-PCS; principal; 2023-10-24)
PROC: 5A1D70Z Performance of Urinary Filtration, Intermittent, Less than 6 Hours Per Day (ICD-10-PCS; 2023-10-27)
DX: I13.2 Hypertensive heart and chronic kidney disease with heart failure and with stage 5 chronic kidney disease, or end stage renal disease (principal); G92.8 Other toxic encephalopathy; I50.33 Acute on chronic diastolic (congestive) heart failure; N18.6 End stage renal disease; K92.2 Gastrointestinal hemorrhage, unspecified; J91.8 Pleural effusion in other conditions classified elsewhere; H70.002 Acute mastoiditis without complications, left ear; D62 Acute posthemorrhagic anemia; E11.22 Type 2 diabetes mellitus with diabetic chronic kidney disease; D63.1 Anemia in chronic kidney disease; E87.5 Hyperkalemia; I25.10 Atherosclerotic heart disease of native coronary artery without angina pectoris; H66.92 Otitis media, unspecified, left ear; Z53.29 Procedure and treatment not carried out because of patient's decision for other reasons; Z87.442 Personal history of urinary calculi; Z86.73 Personal history of transient ischemic attack (TIA), and cerebral infarction without residual deficits; Z83.3 Family history of diabetes mellitus; Z82.49 Family history of ischemic heart disease and other diseases of the circulatory system; Z99.2 Dependence on renal dialysis
CPT/HCPCS: 32555; 36415; 70450; 70551; 71045; 71046; 76604; 76942; 80048; 80053; 82140; 82270; 82962; 83540; 83550; 83735; 83986; 84132; 84484; 85025; 85610; 85730; 87045; 87070; 87081; 87205; 87427; 87493; 89051; 90935; 93005; G0378; J1642; J1815; J2405; J3490